=== PATIENT | female | born 1965 | race Caucasian/White ===

== ENCOUNTER 2019-11-23 07:50 | Outpatient (CLI) | payer BC, SELFPAY ==
--- NOTE | ~2019-11-23 | US_ITS ---
EXAMINATION: US abdomen limited DATE: 11/23/2019 08:26 INDICATION: Splenic tumor on prior CT scan TECHNIQUE: Multiple grayscale and Doppler ultrasound images of the abdomen were obtained. COMPARISON: CT, 09/26/2018 FINDINGS: Bowel gas obscures visualization of the pancreas. The visualized portions of the pancreas a re unremarkable. The liver is normal with normal echogenicity and echotexture. No surface nodularity. Normal hepatopetal flow in the main portal vein. The gallbladder is normal with no abnormal wall thi ckening, pericholecystic fluid or stones. The normal common bile duct measures 4 mm. There was no son ographic Manuel sign. The spleen measures 10.0 cm. The tiny splenic lesion described on the compariso n CT is not identified. IMPRESSION: 1. Splenic lesion described on CT is not identified. Given greater than 12 months of interval since t he comparison examination, this lesion is most consistent with a benign finding. Reviewed, dictated and finalized at location A. ICAL SOCIAL WORKER IMPRESSION: 1. Splenic lesion described on CT is not identified. Given greater than 12 purvi hs of interval since the comparison examination, this lesion is most consistent with a benign finding.
== END 2019-11-23 07:51 | disposition home or self-care (01) ==
LOC: CHSIMG 07:53
PROVIDERS: PCP Internal Medicine; Visit Provider Internal Medicine
DX: D73.89 Other diseases of spleen (principal)
CPT/HCPCS: 76705

== ENCOUNTER 2020-03-22 16:31 | Outpatient (CLI) | payer BC, SELFPAY ==
--- NOTE | ~2020-03-22 | XR_ITS ---
XR ankle LT min 3V DATE: 03/22/2020 16:45 INDICATION: Worsening lateral ankle pain and swelling TECHNIQUE: 4 views COMPARISON: None FINDINGS: No fracture or dislocation of the ankle or disruption of the ankle mortise. No periosteal r eaction or bone destruction. IMPRESSION: Negative Reviewed, dictated and finalized at location A. IMPRESSION: Negative
== END 2020-03-22 16:32 | disposition home or self-care (01) ==
LOC: CHSIMG 16:32
PROVIDERS: PCP Internal Medicine; Visit Provider Internal Medicine
DX: M25.472 Effusion, left ankle (principal); M25.572 Pain in left ankle and joints of left foot
CPT/HCPCS: 73610

== ENCOUNTER 2020-08-30 15:09 | Outpatient (CLI) | payer BC, SELFPAY ==
[2020-08-30 16:38] LABS: SARS-CoV-2 Ag Negative (Negative)
[2020-08-30 16:39] LABS: Influenza Control Valid (Valid)
== END 2020-08-30 15:10 | disposition home or self-care (01) ==
LOC: CHSLAB 15:13
PROVIDERS: PCP Internal Medicine; Visit Provider Internal Medicine
DX: R09.81 Nasal congestion (principal); Z20.828 Contact with and (suspected) exposure to other viral communicable diseases
CPT/HCPCS: 87426; 87804

== ENCOUNTER 2020-09-07 10:12 | Outpatient (CLI) | payer BC, SELFPAY ==
--- NOTE | ~2020-09-07 | XR_ITS ---
EXAMINATION: XR chest 2V DATE: 09/07/2020 10:57 INDICATION: Shortness of breath, COVID 19 TECHNIQUE: PA and lateral views of the chest are obtained. COMPARISON: 06/27/2015 FINDINGS: The lungs are free of acute opacities. There is no pleural effusion or pneumothorax. The ca rdiomediastinal silhouette is normal. There is moderate thoracic spondylosis. IMPRESSION: 1. No acute cardiopulmonary abnormality. Reviewed, dictated and finalized at location A. ARIAL SCIENCE PROFESSOR
== END 2020-09-07 10:13 | disposition home or self-care (01) ==
LOC: CHSIMG 10:13
PROVIDERS: PCP Internal Medicine; Visit Provider Internal Medicine
DX: R06.02 Shortness of breath (principal)
CPT/HCPCS: 71046

== ENCOUNTER 2021-05-14 14:01 | Outpatient (RCR) | payer BC, SELFPAY ==
--- NOTE | 2021-05-14 15:15 | PTOPEVAL ---
Thank you for referring Barbara Perez to [facility].? The patient is scheduled to be seen for therapy? _2___x/week for 8 visits . Please review, sign, date and return this plan of care TIM. I agree with and certify that the following plan of care is medically necessary. Referring Physician Date Admitting Provider: Attending Provider: JACK RUVALCABA Referring Provider: *PT Outpatient Evaluation Start: 05/14/21 14:05 Freq: Status: Active Protocol: Document 05/14/21 14:05 NAMRATA (Rec: 05/14/21 15:15 NAMRATA [email or web address]) Therapy Assessment Status Assessment Status Assessment Status Evaluation Evaluation Information Problem Diagnosis low back pain Onset 05/28/20 Subjective Information Pt. reports that she began Query Text:As Reported By Patient/ noticing pain about a year ago Family . She describes most of her pain from the low back and radiates into the front of the thigh. She reports that sitting for long periods will increase her pain and states that getting up after sitting is difficult. She reports that she has a long car ride to get to work which is painful. she reports pain can radiate down to the calf as well. She states that pain radiates into the pelvis and feels like a cantaulope under her pelvic bone. She reports that she does have RA and was dx 2 years ago, but did not test positive with blood testing. She does have bowel control issues, but states that she does have IBS. She also does suffer from diverticuliits. Pt. reports that her back and hip pain is constant. She states that she works at [employer] and is up most of the day. She reports that sleep was difficult, but has now started a mm. relaxor, gabapentin, tylenol pm nightly to aid with sleep. Pt . reports that she avoids all recreational activities due to
--- NOTE | 2021-06-10 17:13 | PTOPEVAL ---
Thank you for referring Barbara Perez to [facility].? The patient is scheduled to be seen for therapy? ____x/week for ___ weeks. Please review, sign, date and return this plan of care TIM. I agree with and certify that the following plan of care is medically necessary. Referring Physician Date Admitting Provider: Attending Provider: JACK RUVALCABA Referring Provider: STEFANIA Outpatient Evaluation Start: 05/14/21 14:05 Freq: Status: Active Protocol: Document 06/10/21 16:00 [facility] (Rec: 06/10/21 17:12 [facility] [id number]) Therapy Assessment Status Assessment Status Assessment Status Discharge Evaluation Information Problem Diagnosis low back pain Onset 05/28/20 Additional Evaluation Detail oswestry = 46% functionally declined Subjective Information patient reports she feels Query Text:As Reported By Patient/ better this date. she reports Family she feels much better overall since her initial evaluation. she reports she was a bit flared up yesterday when she fell at work. she reports she had an MRI of the cervical, thoracic, and lumbar spines recently. results show spondylosis and annular fissure protruding into the R side at L4/5. patient reports she is ready to DC therapy to continue with HEP on her own until follow up with MD. Pain Assessment Timing of Pain Assessment Timing of Pain Assessment Assessment Pain Scale Pain Scale Used Numeric (1 - 10) Self Report Pain Assessment Lower Back Reported Pain Level 2 Greatest Pain Intensity 4 Pain Score Pain Score 2: Self Report Interventions Used Interventions Used By Clinicians Activity or ADL's,Electrical Stimulation,Exercise,Heat Cervical and Lumbar ROM Lumbar ROM Lumbar Flexion Active Ankle,Floor Query Text:Hands to: Lumbar Extension (0-40) 30 Query Text:Active in Degrees Lumbar Lateral Flexion Right (0-40) 40 Query Text:Active in Degrees Lumbar Lateral Flexion Left (0-40) 40 Query Text:Active in Degrees Cervical and Lumbar Muscle Testing Lumbar Strength Upper Abdominal Strength 3+Fair+ Lower Abdominal Strength 3+Fair+ Abdominal Obliques 3+Fair+ Lower Extremity Muscle Strength Testing General Lower Extremity Strength Gross Lower Extremity Strength -bilateral hip fl
== END 2021-06-10 17:22 | disposition home or self-care (01) ==
LOC: CHSPT 14:01
PROVIDERS: PCP Internal Medicine
DX: M54.5 Low back pain (principal)
CPT/HCPCS: 97014; 97110; 97140; 97161; G0283

== ENCOUNTER 2021-05-21 17:55 | Outpatient (CLI) | payer BC, SELFPAY ==
--- NOTE | ~2021-05-21 | XR_ITS ---
XR lumbar spine 2-3V DATE: 05/21/2021 18:15 INDICATION: Chronic low back pain, right leg numbness TECHNIQUE: AP, lateral, coned lateral lumbosacral views COMPARISON: None FINDINGS: There is minimal dextroscoliosis of the lumbar spine. There is osteopenia. There is severe degenerative disc disease at L2-3. There is moderate degenerative disc disease at L4- 5 and L5-S1. The lumbar pedicles are intact. No fracture or bone destruction. The sacroiliac joints are intact. Prominent calcification of the iliac arteries, abdominal aortic calcification. IMPRESSION: Prominent degenerative disc disease at L2-3, moderate degenerative disc disease at L4-5 a nd L5-S1 Diffuse osteopenia Minimal dextroscoliosis Reviewed, dictated and finalized at location A. IMPRESSION: Prominent degenerative disc disease at L2-3, moderate degenerative disc disease at L4-5 and L5-S1 Diffuse osteopenia Minimal dextroscoliosis
== END 2021-05-21 17:56 | disposition home or self-care (01) ==
LOC: CHSIMG 17:57
PROVIDERS: PCP Internal Medicine; Visit Provider Internal Medicine
DX: M54.5 Low back pain (principal); M06.09 Rheumatoid arthritis without rheumatoid factor, multiple sites
CPT/HCPCS: 72100

== ENCOUNTER 2021-05-27 11:05 | Outpatient (CLI) | payer BC, SELFPAY ==
--- NOTE | ~2021-05-27 | DEXA_ITS ---
Bone Density Report Name: Barbara Perez Age: 56 Sex: Female Ethnicity: White Date of : 1965 Indication: postmenopausal; screening for osteoporosis; height loss; inflammatory bowel disease; cancer; rheumatoid arthritis; secondary osteoporosis; Referring Provider: Bianca, Manish Israel Study: Bone densitometry was performed. Exam Date: May 27, 2021 Accession number: [id number] Bone Density: Region BMD T-score Z-score Classification AP Spine(L1, L2, L3) 1.052 0.3 1.3 Normal Femoral Neck (Left) 0.854 0.0 1.1 Normal Total Hip (Left) 0.993 0.4 1.1 Normal Femoral Neck (Right) 0.898 0.4 1.5 Normal Total Hip (Right) 1.011 0.6 1.2 Normal Femoral Neck Mean 0.876 0.2 1.3 Normal Total Hip Mean 1.002 0.5 1.2 Normal World Health Organization criteria for BMD impression classify patients as: Normal (T-score at or above -1.0), Osteopenia (T-score between -1.0 and -2.5), or Osteoporosis (T-score at or below -2.5). 10-year Fracture Risk: FRAX not reported because: All T-scores for Spine Total, Hip Total, Femoral Neck at or above -1.0 Clinical Information Provided by Patient: Smokes Has rheumatoid arthritis Has secondary osteoporosis Has used the following medications: Vitamin D Has the following medical conditions: Cancer, Inflammatory bowel diseases Patient maximum height was 67 Menopause Age: 42 Drinks caffeinated beverages Onset of menses at age 14 Number of children 0 Impression: The patient has normal bone mass. The patient has risk factors, including: smoking. Discussion: BONE DENSITY IS ABOVE THE MINIMUM DESIRABLE LEVEL AT ALL SKELETAL SITES TESTED. This patient?s bone mineral density is above the minimum desirable level (T-score -1.0 or better) at all sites measured. The patient should follow a healthful lifestyle (good nutrition with adequate calcium and vitamin D, and appropriate weight-bearing exercise). Follow-Up: Consider repeating this study in 5 years or sooner if there is some new clinical indication. Reported by: Dr. Emmett Hui on 05/27/2021 11:39:00 AM. Reviewed, dictated and finalized at location [facility]
== END 2021-05-27 11:06 | disposition home or self-care (01) ==
LOC: CHSIMG 11:12
PROVIDERS: PCP Internal Medicine; Visit Provider Internal Medicine
DX: M06.09 Rheumatoid arthritis without rheumatoid factor, multiple sites (principal)
CPT/HCPCS: 77080

== ENCOUNTER 2021-06-07 06:44 | Outpatient (CLI) | payer BC, SELFPAY ==
--- NOTE | ~2021-06-07 | MR_ITS ---
EXAMINATION: MR cervical spine wo [facility] EXAM DATE: 06/07/2021 08:50 INDICATION: Cervical spondylosis, hand numbness bilaterally. Neck pain. TECHNIQUE: Multi-sequential, multiplanar MR images of the cervical spine were obtained without contra st. Axial T2, axial T2 MERGE sequence. Sagittal T1, T2, T2 fat saturation images also obtained. Th ere is no prior study for comparison. FINDINGS: There is moderate disc disease C5-6 and 6-7. The vertebral body and disc heights are other case well maintained. The vertebral bodies are aligned in the AP dimension. The spinal cord signal in tensity and intrinsic morphology is normal. Cervicomedullary junction is normal in appearance. There are no suspicious marrow signal abnormalities. Paraspinal soft tissue is unremarkable. Level by level evaluation: C2-C3: Disc does not extend beyond the endplate margin. Uncovertebral joint arthropathy: Mild right. Facet joint arthropathy: Moderate right, mild left. Neural foraminal stenosis: No stenosis. Central canal stenosis: No stenosis. C3-C4: Disc does not extend beyond the endplate margin. Uncovertebral joint arthropathy: Mild bilateral. Facet joint arthropathy: Moderate bilateral. Neural foraminal stenosis: Mild right. Central canal stenosis: No stenosis. C4-C5: There is a mild diffuse disc bulge. Uncovertebral joint arthropathy: Mild to moderate bilateral. Facet joint arthropathy: Moderate left, mild to moderate right. Neural foraminal stenosis: Mild bilateral. Central canal stenosis: No stenosis. C5-C6: There is a mild diffuse disc bulge. Uncovertebral joint arthropathy: Severe left, moderate right. Facet joint arthropathy: Moderate bilateral. Neural foraminal stenosis: Moderate to severe left, mild to moderate right. Central canal stenosis: Mild. C6-C7: There is a mild diffuse disc bulge. Uncovertebral joint arthropathy: Moderate to severe bilateral. Facet joint arthropathy: Mild to moderate left, mild right. Neural foraminal stenosis: Moderate bilateral, left greater than right. Central canal stenosis: Mild. C7-T1: Disc does not extend beyond the endplate margin. Uncovertebral joint arthropathy: Mild to moderate bilateral. Facet joint arthropathy: Moderate left, mild right. Neural foraminal stenosis: Mild left. Central canal stenosis: No stenosis. IMPRESSION: 1. Cervical spondylosis mostly C5-6 and C6-7. Reviewed, dictated and finalized at location A.
--- NOTE | ~2021-06-07 | MR_ITS ---
EXAMINATION: MR thoracic spine wo con EXAM DATE: 06/07/2021 08:50 INDICATION: Thoracic And Lumbar Radiculopathy . TECHNIQUE: Multi-sequential, multiplanar MR images of the thoracic spine were obtained without contra st. Sagittal T1, T2, T2 fat saturation, axial T2 weighted images reviewed. There is no prior study for comparison. FINDINGS: Mild diffuse thoracic disc disease and facet arthropathy with small disc bulges and protrus ions at some of the levels, only causing minimal central canal stenosis. The neural foramen appear wi luci patent. The spinal cord signal intensity and intrinsic morphology is normal. There are no suspic ious marrow signal abnormalities. The vertebral bodies are aligned in the AP dimension. Paraspinal so ft tissue is unremarkable. IMPRESSION: Mild thoracic spondylosis. Reviewed, dictated and finalized at location A. IMPRESSION: Mild thoracic spondylosis.
--- NOTE | ~2021-06-07 | MR_ITS ---
EXAMINATION: MR lumbar spine wo con EXAM DATE: 06/07/2021 08:50 INDICATION: Thoracic and lumbar radiculopathy. Low back pain for one year, right leg numbness. TECHNIQUE: Multi-sequential, multiplanar MR images of the lumbar spine were obtained without contrast . Sagittal T1, T2, T2 fat saturation images. Axial T2 weighted images. Correlation is made to lumba r x-ray 05/21/2021. FINDINGS: L2-3 has moderate disc disease with endplate edema. Mild disc disease L4-5 and L5-S1. There is 2 mm anterolisthesis L4 on L5. No spondylolysis. The conus medullaris terminates at the L1/2 leve l and has normal signal intensity and morphology. There are no focal marrow signal abnormalities susp icious for malignancy or acute fracture. Paraspinal soft tissue is unremarkable. Level by level evaluation: T12-L1: Disc does not extend beyond the endplate margin. Facet arthropathy: None. Neural foraminal stenosis: No stenosis. Central canal stenosis: No stenosis. L1-L2: Disc does not extend beyond the endplate margin. Facet arthropathy: Mild. Neural foraminal stenosis: No stenosis. Central canal stenosis: No stenosis. L2-L3: There is a moderate diffuse disc bulge. Facet arthropathy: Mild to moderate. Neural foraminal stenosis: Mild bilateral. Central canal stenosis: Mild. L3-L4: There is a mild diffuse disc bulge. Facet arthropathy: Mild to moderate. Neural foraminal stenosis: No stenosis. Central canal stenosis: No stenosis. L4-L5: There is a mild to moderate diffuse disc bulge, small far right annular fissure and protrusion , cephalad migration narrowing the neural foramina. Facet arthropathy: Moderate. Neural foraminal stenosis: Moderate right, mild to moderate left. Central canal stenosis: Mild to moderate. L5-S1: There is a moderate diffuse disc bulge. Facet arthropathy: Moderate to severe right, moderate left. Neural foraminal stenosis: Mild to moderate right, mild left. Central canal stenosis: Mild. IMPRESSION: 1. L4-5 right central annular fissure, protrusion contributing to moderate right neural foraminal st enosis. 2. Moderate disc disease L2-3. 3. Less spondylosis other levels. Reviewed, dictated and finalized at location A. IMPRESSION: 1. L4-5 right central annular fissure, protrusion contributing to moderate rig ht neural foraminal stenosis. 2. Moderate disc disease L2-3. 3. Less spondylosis other levels.
== END 2021-06-07 06:45 | disposition home or self-care (01) ==
LOC: CHSIMG 06:46
PROVIDERS: PCP Internal Medicine
DX: R20.0 Anesthesia of skin (principal); M54.14 Radiculopathy, thoracic region; M54.16 Radiculopathy, lumbar region
CPT/HCPCS: 72141; 72146; 72148

== ENCOUNTER 2021-11-29 07:05 | Outpatient (CLI) | payer BC, SELFPAY ==
--- NOTE | ~2021-11-29 | CT_ITS ---
EXAMINATION: CT abdomen pelvis w con DATE: 11/29/2021 07:42 INDICATION: Abdominal pain TECHNIQUE: Computed tomography (CT) of the abdomen and pelvis was performed with 100 cc Omnipaque 350 intravenous contrast. The dose-length product was 808.96 mGy-cm. Automated exposure control and iter ative reconstruction technique were employed. COMPARISON: CT dated 09/26/2018. FINDINGS: Stable 5 mm nodule right lower lobe abutting the pleural surface. Stable mild chronic inter stitial infiltrates in the right middle and lower lobe. Heart size normal. No significant pleural or pericardial effusion. The liver, spleen, pancreas, adrenal glands are unremarkable. There are nonobst ructing bilateral renal stones. Gallbladder is present. Nonobstructive bowel gas pattern. No abnormal pelvic masses or fluid collections. Prominent parametrial vessels are noted, nonspecific. No lymphad enopathy. No significant vascular abnormality. IMPRESSION: 1. No acute abdominal abnormality. 2: Nonobstructing bilateral nephrolithiasis. Reviewed, dictated and finalized at location A. UTIVE OFFICER
== END 2021-11-29 07:06 | disposition home or self-care (01) ==
LOC: CHSIMG 07:06
PROVIDERS: PCP Internal Medicine; Visit Provider Internal Medicine
DX: R10.9 Unspecified abdominal pain (principal)
CPT/HCPCS: 74177; Q9967

== ENCOUNTER 2021-12-05 10:23 | Outpatient (CLI) | payer BC, SELFPAY ==
--- NOTE | ~2021-12-05 | XR_ITS ---
EXAMINATION: XR hip RT min 2V DATE: 12/05/2021 10:50 INDICATION: Right hip pain. TECHNIQUE: 2 views of right hip were obtained. COMPARISON: CT abdomen and pelvis 11/29/2021 FINDINGS: Bone alignment is normal. No fracture. There is mild right hip osteoarthritis. Tubal ligati on clips are noted. IMPRESSION: 1. Mild right hip osteoarthritis. Reviewed, dictated and finalized at location A. ER SOFTWARE ENGINEER
== END 2021-12-05 10:24 | disposition home or self-care (01) ==
LOC: CHSIMG 10:24
PROVIDERS: PCP Internal Medicine; Visit Provider Internal Medicine
DX: M25.551 Pain in right hip (principal)
CPT/HCPCS: 73502

== ENCOUNTER 2022-06-13 09:42 | Outpatient (CLI) | payer BC, SELFPAY ==
[2022-06-13 09:55] LABS: Basophils Absolute Auto 0.05 K/mm3 (0.00-0.10); Basophils Percent Auto 0.5 % (0.0-1.0); Eosinophils Absolute Auto 0.26 K/mm3 (0.02-0.50); Eosinophils Percent Auto 2.6 % (1.0-6.0); Hematocrit 44.2 % (35.0-49.0); Hemoglobin 14.4 g/dL (12.0-15.0); Immature Granulocyte Absolute 0.03 K/mm3 (0.00-0.00); Immature Granulocyte Percent A 0.3 % (0.0-0.0); Lymphocytes Absolute Auto 3.33 K/mm3 (1.10-4.50); Lymphocytes Percent Auto 32.8 % (18.0-42.0); Mean Corpuscular HGB Conc 32.6 g/dL (32.0-36.0); Mean Corpuscular Hemoglobin 30.1 pg (27.0-31.0); Mean Corpuscular Volume 92.3 fL (78.0-102.0); Mean Platelet Volume 9.4 fl (9.2-11.8); Monocytes Percent Auto 5.9 % (2.0-11.0); Neutrophils Absolute Auto 5.9 K/mm3 (1.7-7.2); Neutrophils Percent Auto 57.9 % (50.0-70.0); Platelet Count Result 278 K/mm3 (150-420); Red Blood Count 4.79 M/mm3 (4.20-5.40); Red Cell Distribution Width 12.9 % (11.6-14.4); White Blood Count 10.1 K/mm3 (4.8-10.8)
[2022-06-13 10:57] LABS: Erythrocyte Sedimentation Rate 16 mm/hr (0-20)
[2022-06-13 11:03] LABS: Hemoglobin A1C 6.2 % (<5.7)
[2022-06-13 11:12] LABS: Alanine Aminotransferase 23 U/L (14-59); Albumin Level 4.2 g/dL (3.4-5.0); Alkaline Phosphatase 72 U/L (46-116); Anion Gap 9 mmol/L (8-16); Aspartate Amino Transferase 21 U/L (15-37); Bilirubin,Total 0.4 mg/dL (0.00-1.00); Blood Urea Nitrogen 12 mg/dL (7-18); CRP 0.6 mg/dL (0.0-0.9); Calcium 9.4 mg/dL (8.5-10.1); Carbon Dioxide 28 mmol/L (21-32); Chloride 103 mmol/L (98-108); Cholesterol 237 mg/dL (0-200); Creatine Kinase 86 U/L (26-192); Estimated Glomerular Filt Rate > 60; Glucose 106 mg/dL (70-99); HDL Direct 61 mg/dL (40-60); LDL Cholesterol Calculated 94 mg/dL (<130); Osmolality Calculated 289 mOsm/kg (285-295); Potassium 4.2 mmol/L (3.5-5.1); Sodium 140 mmol/L (136-145); Total Protein 7.1 g/dL (6.4-8.2); Triglycerides 408 mg/dL (0-150)
[2022-06-13 11:13] LABS: LDL Cholesterol Direct 107 mg/dL (0-130)
[2022-06-17 12:55] LABS: Anti Cyclic Citrullinated Pept <16 Units (<20)
[2022-06-17 17:17] LABS: Vitamin D 25 Hydroxy 46 ng/mL (30-100)
== END 2022-06-13 09:43 | disposition home or self-care (01) ==
LOC: CHSLAB 09:44
PROVIDERS: PCP Internal Medicine; Visit Provider Internal Medicine
DX: E78.2 Mixed hyperlipidemia (principal); R73.01 Impaired fasting glucose; E55.9 Vitamin D deficiency, unspecified; M06.09 Rheumatoid arthritis without rheumatoid factor, multiple sites
CPT/HCPCS: 36415; 80053; 80061; 82306; 82550; 83036; 83721; 85025; 85652; 86140; 86200

== ENCOUNTER 2023-01-14 08:25 | Outpatient (CLI) | payer BC, SELFPAY | END 2023-01-14 08:26 | disposition home or self-care (01) | LOC: CHSIMG 09:06 | PROVIDERS: PCP Internal Medicine; Visit Provider Urology | DX: R31.29 Other microscopic hematuria (principal) | CPT/HCPCS: 99199 ==

== ENCOUNTER 2023-01-23 07:28 | Outpatient (CLI) | payer BC, SELFPAY ==
--- NOTE | ~2023-01-23 | MR_ITS ---
MRI of the right hip Clinical history: Pain Technique: Coronal T1-weighted, T2-weighted, and proton-density fat-sat images, and axial T1-weighted and proton-density fat-sat images were acquired through the pelvis. Coronal T2-weighted images and c oronal, axial, and sagittal proton-density fat-sat images were acquired through the right hip. Findings: There is no fracture, avascular necrosis, or transient osteoporosis of either hip. Bone mar row signals in the proximal femora and visualized pelvic bones are unremarkable. Probable mild chondr omalacia of both hip joints noted. No joint effusion evident. Visualized musculature about the pelvis and right hip is unremarkable. No muscle atrophy or edema. As tendons are intact. No soft tissue mass or fluid collection seen. No evidence for bursitis. IMPRESSION: Mild chondromalacia of both hip joints. No other significant findings. Reviewed, dictated and finalized at [facility].
== END 2023-01-23 07:29 | disposition home or self-care (01) ==
LOC: CHSIMG 07:30
PROVIDERS: PCP Internal Medicine; Visit Provider Internal Medicine
DX: M25.551 Pain in right hip (principal); M94.251 Chondromalacia, right hip
CPT/HCPCS: 73721

== ENCOUNTER 2023-01-27 08:05 | Outpatient (CLI) | payer BC, SELFPAY ==
--- NOTE | ~2023-01-27 | CT_ITS ---
EXAMINATION: CT abdomen pelvis wo/w con DATE: 01/27/2023 09:13 INDICATION: Microscopic hematuria. Right lower quadrant abdominal pain. TECHNIQUE: Computed tomography (CT) of the abdomen and pelvis was performed without and with intraven ous contrast using a total of 130 mL Omnipaque-350 intravenous contrast with a double-bolus technique for simultaneous opacification of the renal parenchyma and renal collecting system. Automated exposu re control and iterative reconstruction technique were employed. The dose-length product was 1207.90 mGy-cm. COMPARISON: CT abdomen and pelvis 11/29/2021 FINDINGS: The visualized portions of the lung bases demonstrate mild emphysema. There is mild radiation fibrosi s in anterolateral right lung. No pleural effusion. The heart size is normal. There are coronary ree ry calcifications. No pericardial effusion. The liver, gallbladder, spleen, pancreas, adrenal glands, and kidneys are normal. There are vascular calcifications at the lupe of the kidneys. There is no ur olithiasis. The ureters are well opacified and are normal. The bladder is normal. There are bilateral tubal ligation clips. There are no dilated loops of bowel. The appendix is normal. There are no path ologically enlarged lymph nodes. There is no free intraperitoneal fluid. There is severe lumbar spond ylosis. IMPRESSION: 1. No etiology for hematuria. Reviewed, dictated and finalized at location A.
[2023-01-27 08:37] LABS: Estimated Glomerular Filt Rate > 60
== END 2023-01-27 08:06 | disposition home or self-care (01) ==
LOC: CHSIMG 08:11
PROVIDERS: PCP Internal Medicine
DX: R31.29 Other microscopic hematuria (principal)
CPT/HCPCS: 74178; Q9967

== ENCOUNTER 2023-07-06 18:11 | Outpatient (CLI) | payer BC, SELFPAY ==
[2023-07-06 18:33] LABS: Appearance Urine Clear (Clear); Basophils Absolute Auto 0.08 K/mm3 (0.00-0.10); Basophils Percent Auto 0.8 % (0.0-1.0); Bilirubin Urine Negative (Negative); Blood Urine 2+ (Negative); Color Urine Yellow (Yellow); Eosinophils Absolute Auto 0.16 K/mm3 (0.02-0.50); Eosinophils Percent Auto 1.6 % (1.0-6.0); Glucose Urine UA Negative (Negative); Hematocrit 40.4 % (35.0-49.0); Hemoglobin 13.3 g/dL (12.0-15.0); Immature Granulocyte Absolute 0.02 K/mm3 (0.00-0.00); Immature Granulocyte Percent A 0.2 % (0.0-0.0); Ketones Urine Negative (Negative); Leukocyte Esterase Ur Trace (Negative); Lymphocytes Absolute Auto 4.31 K/mm3 (1.10-4.50); Lymphocytes Percent Auto 43.2 % (18.0-42.0); Mean Corpuscular HGB Conc 32.9 g/dL (32.0-36.0); Mean Platelet Volume 9.5 fl (9.2-11.8); Monocytes Absolute Auto 0.52 K/mm3 (0.10-0.90); Monocytes Percent Auto 5.2 % (2.0-11.0); Neutrophils Absolute Auto 4.9 K/mm3 (1.7-7.2); Nitrate Urine Negative (Negative); Platelet Count Result 312 K/mm3 (150-420); Protein Urine Negative (Negative); Red Blood Count 4.44 M/mm3 (4.20-5.40); Red Cell Distribution Width 12.7 % (11.6-14.4); Urobilinogen Urine 0.2 mg/dL (0.2-1.0)
[2023-07-06 18:44] LABS: Hemoglobin A1C 6.1 % (<5.7)
[2023-07-06 18:58] LABS: Add Urine Microscopic? YES; Bacteria Urine Trace /hpf; Mucus Urine Few /lpf; RBC Urine 0-2 /hpf (0-2); Squamous Epithelial Cell Urine Rare /hpf (Few); WBC Urine 0-3 /hpf (0-3)
[2023-07-06 19:11] LABS: Alanine Aminotransferase 27 U/L (14-59); Albumin Level 4.2 g/dL (3.4-5.0); Alkaline Phosphatase 74 U/L (46-116); Anion Gap 9 mmol/L (8-16); Aspartate Amino Transferase 19 U/L (15-37); Bilirubin,Total 0.4 mg/dL (0.00-1.00); Blood Urea Nitrogen 18 mg/dL (7-18); Calcium 9.5 mg/dL (8.5-10.1); Carbon Dioxide 28 mmol/L (21-32); Chloride 100 mmol/L (98-108); Cholesterol 207 mg/dL (0-200); Creatine Kinase 148 U/L (26-192); Estimated Glomerular Filt Rate > 60; Glucose 98 mg/dL (70-99); HDL Direct 78 mg/dL (40-60); LDL Cholesterol Calculated 109 mg/dL (<130); Osmolality Calculated 285 mOsm/kg (285-295); Potassium 4.2 mmol/L (3.5-5.1); Sodium 137 mmol/L (136-145); Triglycerides 98 mg/dL (0-150)
[2023-07-06 19:15] LABS: CRP < 0.5 mg/dL (0.0-0.9)
[2023-07-06 19:35] LABS: Erythrocyte Sedimentation Rate 16 mm/hr (0-20); Rheumatoid Factor Screen Negative (Negative)
[2023-07-09 12:09] LABS: Cyclic Citrullinated Peptide <16 Units (<20)
== END 2023-07-06 18:12 | disposition home or self-care (01) ==
LOC: CHSLAB 18:13
PROVIDERS: PCP Internal Medicine; Visit Provider Internal Medicine
DX: E78.2 Mixed hyperlipidemia (principal); R73.01 Impaired fasting glucose; M06.09 Rheumatoid arthritis without rheumatoid factor, multiple sites; M79.2 Neuralgia and neuritis, unspecified
CPT/HCPCS: 36415; 80053; 80061; 81001; 82550; 83036; 85025; 85652; 86038; 86140; 86200; 86430

== ENCOUNTER 2024-01-01 08:48 | Outpatient (CLI) | payer BC, SELFPAY ==
[2024-01-01 09:38] LABS: Basophils Absolute Auto 0.08 K/mm3 (0.00-0.10); Eosinophils Absolute Auto 0.22 K/mm3 (0.02-0.50); Eosinophils Percent Auto 2.7 % (1.0-6.0); Hematocrit 43.9 % (35.0-49.0); Hemoglobin 13.6 g/dL (12.0-15.0); Immature Granulocyte Absolute 0.02 K/mm3 (0.00-0.00); Immature Granulocyte Percent A 0.2 % (0.0-0.0); Lymphocytes Absolute Auto 3.63 K/mm3 (1.10-4.50); Lymphocytes Percent Auto 43.8 % (18.0-42.0); Mean Corpuscular Hemoglobin 28.5 pg (27.0-31.0); Mean Corpuscular Volume 91.8 fL (78.0-102.0); Mean Platelet Volume 9.6 fl (9.2-11.8); Monocytes Absolute Auto 0.51 K/mm3 (0.10-0.90); Monocytes Percent Auto 6.2 % (2.0-11.0); Neutrophils Absolute Auto 3.82 K/mm3 (1.70-7.20); Neutrophils Percent Auto 46.1 % (50.0-70.0); Platelet Count Result 300 K/mm3 (150-420); Red Blood Count 4.78 M/mm3 (4.20-5.40); Red Cell Distribution Width 12.1 % (11.6-14.4); White Blood Count 8.3 K/mm3 (4.8-10.8)
[2024-01-01 09:51] LABS: Alanine Aminotransferase 23 U/L (14-59); Albumin Level 4.1 g/dL (3.4-5.0); Alkaline Phosphatase 63 U/L (46-116); Anion Gap 7 mmol/L (4-12); Aspartate Amino Transferase 17 U/L (15-37); Bilirubin,Total 0.3 mg/dL (0.00-1.00); Blood Urea Nitrogen 13 mg/dL (7-18); Calcium 9.4 mg/dL (8.5-10.1); Carbon Dioxide 32 mmol/L (21-32); Chloride 103 mmol/L (98-108); Cholesterol 217 mg/dL (0-200); Creatine Kinase 65 U/L (26-192); Estimated Glomerular Filt Rate > 60; Glucose 95 mg/dL (70-99); HDL Direct 71 mg/dL (40-60); LDL Cholesterol Calculated 89 mg/dL (<130); Osmolality Calculated 294 mOsm/kg (285-295); Potassium 4.3 mmol/L (3.5-5.1); Sodium 142 mmol/L (136-145); Total Protein 6.9 g/dL (6.4-8.2); Triglycerides 287 mg/dL (0-150)
[2024-01-01 09:57] LABS: Appearance Urine Cloudy (Clear); Bilirubin Urine Negative (Negative); Blood Urine Trace-intact (Negative); Color Urine Light Yellow (Yellow); Glucose Urine UA Negative (Negative); Ketones Urine Negative (Negative); Leukocyte Esterase Ur 2+ LEU/UL (Negative); Nitrate Urine Negative (Negative); Protein Urine Negative (Negative); Specific Grav Ur 1.015 (1.010-1.020); Urobilinogen Urine 0.2 mg/dL (0.2-1.0)
[2024-01-01 10:03] LABS: CRP < 0.5 mg/dL (0.0-0.9)
[2024-01-01 10:09] LABS: Rheumatoid Factor Screen Negative (Negative)
[2024-01-01 10:10] LABS: Hemoglobin A1C 5.9 % (<5.7)
[2024-01-01 10:15] LABS: Add Urine Microscopic? YES; RBC Urine 0-2 /hpf (0-2); Squamous Epithelial Cell Urine Few /hpf (Few)
[2024-01-01 10:16] LABS: Amorphous Sediment Urine Moderate; Bacteria Urine 1+ /hpf
[2024-01-01 10:34] LABS: Erythrocyte Sedimentation Rate 10 mm/hr (0-20)
[2024-01-05 19:45] LABS: Anti Cyclic Citrullinated Pept <16 Units (<20)
== END 2024-01-01 08:49 | disposition home or self-care (01) ==
LOC: CHSLAB 08:50
PROVIDERS: PCP Internal Medicine; Visit Provider Internal Medicine
DX: R73.01 Impaired fasting glucose (principal); E78.2 Mixed hyperlipidemia; M79.7 Fibromyalgia; N39.0 Urinary tract infection, site not specified; R82.90 Unspecified abnormal findings in urine
CPT/HCPCS: 36415; 80053; 80061; 81001; 82043; 82550; 83036; 85025; 85652; 86038; 86140; 86200; 86430; 87086; 87088

== ENCOUNTER 2024-07-31 09:52 | Outpatient (CLI) | payer BC, SELFPAY ==
--- NOTE | ~2024-07-31 | CT_ITS ---
CT Scan of the Chest without Contrast: Clinical Indication: Lung cancer screening, nicotine dependence Technique: Contiguous sections were acquired throughout the chest without intravenous contrast. Dose reduction technique was used on this scan by utilizing automated exposure control and iterative recon struction technique. The dose-length product (DLP) was 90.40 mGy-cm. Findings: There is no evidence of any significant mediastinal, hilar or axillary lymphadenopathy. The mediastin al soft tissues appear normal. There is no evidence of pleural or pericardial effusion. The lungs are clear. No pulmonary nodules or infiltrates are noted. Images through the upper abdomen reveal no abnormalities. Impression: Lung RADS 1: Negative. 12 month follow-up screening CT advised. Reviewed, dictated and finalized at location . 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 12 month follow-up screening CT advised.
== END 2024-07-31 09:53 | disposition home or self-care (01) ==
LOC: CHSIMG 09:53
PROVIDERS: PCP Internal Medicine; Visit Provider Internal Medicine
DX: Z12.2 Encounter for screening for malignant neoplasm of respiratory organs (principal); Z87.891 Personal history of nicotine dependence
CPT/HCPCS: 71271

== ENCOUNTER 2025-08-27 15:14 | Outpatient (CLI) | payer BC, SELFPAY ==
--- OUTSIDE RECORDS SUMMARY | 2010-08-24 18:00 | XMS_ITS | Continuity of Care Document ---
Author Organization [facility] Address [address] [place] [address] Phone Care Team Providers Care Electrical Foreman Name Role Phone Conversion MD, Doctor Unavailable Unavailabl e Advance Directives Directive Yes / No Effective Date File Name No Information Encounters Encounter Description Practice Location Reason(s) For Visit Diagnoses Date Provider Providers Copied on Encounter [facility], [address], [place], [place], [id number] , tel:[phone] Conversion Department No Information 0 Conversion Doctor. [address] [place] [address], [id number], . [facility], [address], [place], [place], [address] , tel:[phone] [facility]REQUENCYHEMATURI A NOSBACKACHE NOS 0 Kitty Low. [address] , [address], [place], [id number], [place]. tel:[phone] Family History Family Member Type Diagnosis Age At Onset No Information Payers Payer name Insurance type Covered libertarian ID Authoriza tion(s) No Information Social History Type Description Quantity Date Captured Comments Alcohol Use Details Unknown Caffeine Use Details Unknown Tobacco Use Status Smoking Status No Information Sex Female Chief Complaint And Reason For Visit No Information Reason For Referral Reason For Referral No Information History Of Present Illness Encounter Date Complaint History Of Prese nt Illness No Information Functional Status Date Functional Assessmen t No Information Instructions Date Instruction Additional Infor mation No Information Assessments Type Assessment Date No Information Patient Care Teams Name Effective Dates (start - stop) Status Members No Information
--- NOTE | ~2025-08-27 | XR_ITS ---
XR lumbar spine 2-3V Indication: PAIN; LOWER BACK Comparison: None Findings: Grade 1 anterolisthesis of L4 on L5, no fracture is identified. Moderate loss of disc height L3, L4-5 and L5-S1 Soft tissues unremarkable Impression: No acute abnormality. Reviewed, dictated and finalized at location P. ITOMETRIST Impression: No acute abnormality.
--- NOTE | ~2025-08-27 | XR_ITS ---
EXAMINATION: XR hip LT min 2V, 08/27/2025 15:30 ACCOUNTS EXECUTIVE HISTORY: PAIN; LEFT HIP COMPARISON: No comparisons available. Findings: No acute fracture or malalignment. No significant degenerative changes. Soft tissues unremarkable. Impression: No acute fracture or malalignment. Reviewed, dictated and finalized at location P. UNTS EXECUTIVE Impression: No acute fracture or malalignment.
--- OUTSIDE RECORDS SUMMARY | 2025-08-27 15:51 | XMS_ITS | Encounter Summary ---
Author Organization [facility] Address 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, [place] [address] Admit Date: 01/26/2008 EARL ALVAREZ Sex: F Admit Prov: SREEKANTH FERNANDEZ Date: 1965 Primary Care Prov: SREEKANTH FERNANDEZ CMRN: [id number] Room: [facility] SSN: [id number] IMAGING SERVICES Ordering Prov: SREEKANTH FERNANDEZ Accession Number: [id number] Interpretation BILATERAL DIAGNOSTIC DIGITAL MAMMOGRAMS WITH COMPUTER ASSISTED DIAGNOSIS, RIGHT BREAST ULTRASOUND, 01/26/2008 Clinical History: Ms. Alvarez is a 42-year-old female who presents with a palpable lump in the right breast upper-outer quadrant which she describes as present for approximately 2 years, and getting bigger. She has previously undergone mammography and ultrasound in [place] in 2005. Findings: Three-view bilateral mammography was performed after a radiopaque marker was placed over the palpable lump in the right upper-outer quadrant. The breast parenchyma is heterogeneously dense, which lowers the sensitivity of detection of underlying disease. A partially visualized masslike density is suggested at the site of the marker in the right upper- outer quadrant. There is asymmetry in the lower anterior aspect of the right breast when compared to the left. There is no skin thickening or nipple retraction. No adenopathy is identified. The CAD system was utilized. Ultrasound evaluation of the right upper-outer quadrant, confirms the presence of a 1 cm irregular lobulated mass showing prominent internal vascularity and probable ductal extension. No other discrete masses are identified in the right upper-outer quadrant. No enlarged lymph nodes were visible in the right axilla. Impression: 1. There is a palpable, irregular solid mass in the right breast upper- outer quadrant, suspicious for malignancy. Further evaluation by ultrasound-guided core biopsy is advised. 2. [facility] Radiology will attempt to obtain the patient's previous imaging from [place] for comparison, to determine stability in the parenchymal appearance of both breasts. An addendum report will be issued when the previous films have been obtained and reviewed. BI-RADS Category: 5 Dictated by: DENITA LUBIN Electronically signed by: DENITA LUBIN 01/27/2008 09:12 Transcribed: 01/26/2008 16:18 DKT Procedure Note Denita Lubin - 01/27/2008 [facility] [address] [place], [place] [address] Admit Date: 01/26/2008 EARL ALVAREZ Sex: F Admit Prov: SREEKANTH FERNANDEZ Date: 1965 Primary Care Prov: SREEKANTH FERNANDEZ CMRN: [id number] Room: [facility] SSN: [id number] IMAGING SERVICES Ordering Prov: SREEKANTH FERNANDEZ Interpretation BILATERAL DIAGNOSTIC DIGITAL MAMMOGRAMS WITH COMPUTER ASSISTEDDIAGNOSIS, RIGHT BREAST ULTRASOUND, 01/26/2008 Clinical History: Ms. Alvarez is a 42-year-old female who presents witha palpable lump in the right breast upper-outer quadrant which shedescribes as present for approximately 2 years, and getting bigger. She has previously undergone mammography and ultrasound in [place] [id number]. Findings: Three-view bilateral mammography was performed after aradiopaque marker was placed over the palpable lump in the right upper-outerquadrant. The breast parenchyma is heterogeneously dense, which lowers the sensitivity of detection of underlying disease. A partiallyvisualized masslike density is suggested at the site of the marker in the rightupper- outer quadrant. There is asymmetry in the lower anterior aspect ofthe right breast when compared to the left. There is no skin thickeningor nipple retraction. No adenopathy is identified. The CAD system was utilized. Ultrasound evaluation of the right upper-outer quadrant, confirmsthe presence of a 1 cm irregular lobulated mass showing prominentinternal vascularity and probable ductal extension. No other discrete massesare identified in the right upper-outer quadrant. No enlarged lymph nodeswere visible in the right axilla. Impression: 1. There is a palpable, irregular solid mass in the right breastupper- outer quadrant, suspicious for malignancy. Further evaluation by ultrasound-guided core biopsy is advised. 2. [facility] Radiology will attempt to obtain the patient's previousimaging from [place] for comparison, to determine stability in theparenchymal appearance of both breasts. An addendum report will be issued whenthe previous films have been obtained and reviewed. BI-RADS Category: 5 Dictated by: DENITA LUBIN Electronically signed by: DENITA LUBIN 01/27/2008 09:12 Transcribed: 01/26/2008 16:18 DKT Sreekanth Fernandez MD ORDERABLES Final Result * MAMMO DIGITAL DIAG BILAT (01/26/2008 1:30 PM CDT) Anatomical Region Laterality Modality Breast Bilateral Other 01/26/2008 1:30 PM CDT Narrative 01/27/2008 9:12 AM CDT [facility] [address], [place] [address] Admit Date: 01/26/2008 EARL ALVAREZ Sex: F Admit Prov: SREEKANTH FERNANDEZ Date: 1965 Primary Care Prov: SREEKANTH FERNANDEZ CMRN: [id number] Room: [facility] SSN: [id number] IMAGING SERVICES Ordering Prov: SREEKANTH FERNANDEZ Accession Number: [id number] Interpretation BILATERAL DIAGNOSTIC DIGITAL MAMMOGRAMS WITH COMPUTER ASSISTED DIAGNOSIS, RIGHT BREAST ULTRASOUND, 01/26/2008 Clinical History: Ms. Alvarez is a 42-year-old female who presents with a palpable lump in the right breast upper-outer quadrant which she describes as present for approximately 2 years, and getting bigger. She has previously undergone mammography and ultrasound in [place] in 2005. Findings: Three-view bilateral mammography was performed after a radiopaque marker was placed over the palpable lump in the right upper-outer quadrant. The breast parenchyma is heterogeneously dense, which lowers the sensitivity of detection of underlying disease. A partially visualized masslike density is suggested at the site of the marker in the right upper- outer quadrant. There is asymmetry in the lower anterior aspect of the right breast when compared to the left. There is no skin thickening or nipple retraction. No adenopathy is identified. The CAD system was utilized. Ultrasound evaluation of the right upper-outer quadrant, confirms the presence of a 1 cm irregular lobulated mass showing prominent internal vascularity and probable ductal extension. No other discrete masses are identified in the right upper-outer quadrant. No enlarged lymph nodes were visible in the right axilla. Impression: 1. There is a palpable, irregular solid mass in the right breast upper- outer quadrant, suspicious for malignancy. Further evaluation by ultrasound-guided core biopsy is advised. 2. [facility]iology will attempt to obtain the patient's previous imaging from [place] for comparison, to determine stability in the parenchymal appearance of both breasts. An addendum report will be issued when the previous films have been obtained and reviewed. BI-RADS Category: 5 Assessment BIRADS: 5-Highly suggestive of malignancy, appropriate action should be taken Recommendation: Biopsy should be strongly considered Dictated by: DENITA LUBIN Electronically signed by: DENITA LUBIN 01/27/2008 09:12 Transcribed: 01/26/2008 16:18 DKT Procedure Note Denita Lubin - 01/27/2008 [id number] [place], [place] [address] Admit Date: 01/26/2008 EARL ALVAREZ Sex: F Admit Prov: SREEKANTH FERNANDEZ Date: 1965 Primary Care Prov: SREEKANTH FERNANDEZ CMRN: [id number] Room: [facility] SSN: [id number] IMAGING SERVICES Ordering Prov: SREEKANTH FERNANDEZ Interpretation BILATERAL DIAGNOSTIC DIGITAL MAMMOGRAMS WITH COMPUTER ASSISTEDDIAGNOSIS, RIGHT BREAST ULTRASOUND, 01/26/2008 Clinical History: Ms. Alvarez is a 42-year-old female who presents witha palpable lump in the right breast upper-outer quadrant which shedescribes as present for approximately 2 years, and getting bigger. She has previously undergone mammography and ultrasound in [place] [id number]. Findings: Three-view bilateral mammography was performed after aradiopaque marker was placed over the palpable lump in the right upper-outerquadrant. The breast parenchyma is heterogeneously dense, which lowers the sensitivity of detection of underlying disease. A partiallyvisualized masslike density is suggested at the site of the marker in the rightupper- outer quadrant. There is asymmetry in the lower anterior aspect ofthe right breast when compared to the left. There is no skin thickeningor nipple retraction. No adenopathy is identified. The CAD system was utilized. Ultrasound evaluation of the right upper-outer quadrant, confirmsthe presence of a 1 cm irregular lobulated mass showing prominentinternal vascularity and probable ductal extension. No other discrete massesare identified in the right upper-outer quadrant. No enlarged lymph nodeswere visible in the right axilla. Impression: 1. There is a palpable, irregular solid mass in the right breastupper- outer quadrant, suspicious for malignancy. Further evaluation by ultrasound-guided core biopsy is advised. 2. [facility] Radiology will attempt to obtain the patient's previousimaging from [place] for comparison, to determine stability in theparenchymal appearance of both breasts. An addendum report will be issued whenthe previous films have been obtained and reviewed. BI-RADS Category: 5 Assessment BIRADS: 5-Highly suggestive of malignancy, appropriateaction should be taken Recommendation: Biopsy should be strongly considered Dictated by: DENITA LUBIN Electronically signed by: DENITA LUBIN 01/27/2008 09:12 Transcribed: 01/26/2008 16:18 DKT Sreekanth Fernandez MD MAMMO ORDERABLES Final Result documented in this encounter Visit Diagnoses Diagnosis Lump or mass in breast documented in this encounter Care Teams Foil Stamp Operator Relationship Specialty Start Date End Date Justus Bear MD [address] [place] [phone] PCP - General Internal Medicine 08/13/16 documented as of this encounter
--- OUTSIDE RECORDS SUMMARY | 2025-08-27 15:51 | XMS_ITS | Encounter Summary ---
Author Organization [employer] Address 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 Normal RBC morphology. Mild leukocytosis. Normal differential. Negative for basophilia or eosinophilia. Normal platelet count. PBS evaluation by Dr. Saira Chor [facility] Blood specimen (specimen) 01/23/2008 3:06 PM CDT 01/23/2008 3:06 PM CDT Narrative [facility] - 01/24/2008 6:53 PM CDT add to blood in lab from [facility] ok per hematology rj us Sreekanth Fernandez MD HEMATOLOGY ORDERABLES Final Resu lt [facility] [address] [place], [place] [address] * (ABNORMAL) CBC WITH DIFFERENTIAL (01/23/2008 3:06 PM CDT) MCV 90.3 82.0 - 99.0 fL [facility] PLATELETS 271 140 - 350 K/uL [facility] HEMOGLOBIN 15.2(H) 11.8 - 14.8 g/dL [facility] RDW 12.8 11.5 - 14.5 % [facility] WBC 12.0(H) 4.0 - 9.8 K/uL [facility] MCH 30.1 27.2 - 32.6 pg [facility] MPV 10.8 9.3 - 12.4 fL [facility] HEMATOCRIT 45.6(H) 35.5 - 44.0 % [facility] RDW-STDEV 41.8 37.1 - 48.7 fL [facility] RBC 5.05(H) 3.90 - 4.90 M/uL [facility] MCHC 33.3 31.5 - 35.5 % [facility] EOSINOPHILS 2 0 - 7 % [facility] EOSINOPHIL ABSOLUTE 0.27 0.00 - 0.70 K/uL [facility] LYMPHOCYTES 37 16 - 45 % [facility] LYMPHOCYTE ABSOLUTE 4.45 0.70 - 4.50 K/uL [facility] BASOPHILS 1 0 - 2 % [facility] BASOPHILS ABSOLUTE 0.06 0.00 - 0.20 K/uL [facility] MONOCYTES 5 3 - 13 % [facility] MONOCYTE ABSOLUTE 0.64 0.10 - 1.30 K/uL [facility] NEUTROPHILS 55 45 - 70 % [facility] NEUTROPHIL ABSOLUTE 6.62 1.90 - 7.00 K/uL [facility] Blood specimen (specimen) 01/23/2008 3:06 PM CDT 01/23/2008 8:15 PM CDT Sreekanth Fernandez MD HEMATOLOGY ORDERABLES Edited Performing Organization Address City/[facility]/ZIP Co de Phone Number INTERFACE SYSTEM Refer to clinic/hospital department [facility] [address] [place], [place] [address] * SEDIMENTATION RATE (01/23/2008 3:06 PM CDT) ESR (SEDIMENTATION RATE) 6 0 - 20 mm/hr [facility] Blood specimen (specimen) 01/23/2008 3:06 PM CDT 01/23/2008 8:15 PM CDT Sreekanth Fernandez MD HEMATOLOGY ORDERABLES Final Resu lt Performing Organization Address City/[facility]/ZIP Co de Phone Number [facility] [address] [place] [place] [address] documented in this encounter Visit Diagnoses Diagnosis Other abnormal blood chemistry documented in this encounter Care Teams Mobile Sales Technician Relationship Specialty Start Date End Date Justus Bear MD [address] [place] [phone] PCP - General Internal Medicine 08/13/16 documented as of this encounter
--- OUTSIDE RECORDS SUMMARY | 2025-08-27 15:51 | XMS_ITS | Encounter Summary ---
Author Organization [employer] Address [address] [place] [address] Care Team Providers Care Human Services Assistant Name Role Phone Justus Bear MD Primary Care Provider + Encounter Details Date Type Department Care Team (Latest Contact Info) Description 01/20/2008 Outpatient Historical HIS [facility] Sreekanth Fernandez MD [address] [place] [phone] Routine General Medical Examination at a Health Care Facility Social History Tobacco Use Types Packs/Day Years Used Date Smoking Tobacco: Never Assessed Comments No Sex and Gender Information Value Date Recorded Sex Assigned at Not on file 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 Gender Identity Not on file Sexual Orientation Not on file documented as of this encounter Plan of Treatment Not on file documented as of this encounter Procedures Procedure Name Priority Date/Time Associated Diagnosis Comments URINALYSIS W/REFLEX MICROSCOPIC Routine 01/20/2008 8:02 AM CDT CBC WITH DIFFERENTIAL Routine 01/20/2008 7:56 AM CDT LIPID PANEL Routine 01/20/2008 7:56 AM CDT COMPREHENSIVE METABOLIC PANEL Routine 01/20/2008 7:56 AM CDT documented in this encounter Results * (ABNORMAL) URINALYSIS (01/20/2008 8:02 AM CDT) KETONES UA Negative Negative [facility] COLOR UA Yellow [facility] NITRITE UA Negative Negative [facility] BILIRUBIN UA Negative Negative [facility] CLARITY UA Slt. Cloudy(A) Clear [facility] PH UA 7.0 5.0 - 8.0 [facility] AMORPHOUS CRYSTAL Rare /HPF [facility] WBC UA 1 0 - 5 /HPF [facility] UROBILINOGEN UA <1 <=1 mg/dL [facility] BLOOD UA Negative Negative [facility] SPECIFIC GRAVITY UA 1.015 1.001 - 1.035 [facility] PROTEIN UA Negative Negative [facility] RBC UA 2 0 - 4 /HPF [facility] EPITHELIAL CELLS, URINE 5-10 /HPF [facility] LEUKOCYTE ESTERASE UA Negative Negative [facility] GLUCOSE UA Negative Negative [facility] Urine specimen (specimen) 01/20/2008 8:02 AM CDT 01/20/2008 11:53 AM CDT us Sreekanth Fernandez MD URINE ORDERABLES Final Result [facility] [address] [place] [address] * (ABNORMAL) COMPREHENSIVE METABOLIC PANEL (01/20/2008 7:56 AM CDT) Pathologist [facility] CHLORIDE 103 96 - 108 mmol/L [facility] GLUCOSE 101(H) 65 - 99 mg/dL [facility] AST 20 12 - 32 U/L [facility] SODIUM 138 135 - 145 mmol/L [facility] ALKALINE PHOSPHATASE 47 35 - 104 U/L [facility] ALBUMIN 4.2 3.4 - 4.8 g/dL [facility] CO2 25 22 - 30 mmol/L [facility] ALT 15 0 - 31 U/L [facility] CREATININE 0.77 0.51 - 0.95 mg/dL [facility] POTASSIUM 4.9 3.5 - 4.9 mmol/L [facility] CALCIUM 9.0 8.4 - 10.2 mg/dL [facility] BILIRUBIN TOTAL 0.3 0.2 - 1.0 mg/dL [facility] BUN 14 6 - 20 mg/dL [facility] TOTAL PROTEIN 6.9 6.3 - 8.6 g/dL [facility] GFR, >60 >=60 mL/min/1. 7 sq meter [facility] GFR >60 >=60 mL/min/1. 7 sq meter [facility] Comment: Estimated GFR rate interpretative information for both Americans and non- Americans is available on the [facility]an[facility] at: [email or web address] Select: Lab Policies and Procedures Select: Reference Ranges - GFR Blood specimen (specimen) 01/20/2008 7:56 AM CDT 01/20/2008 11:53 AM CDT us Sreekanth Fernandez MD CHEMISTRY ORDERABLES Edited [facility] [address] [place] [address] * (ABNORMAL) CBC WITH DIFFERENTIAL (01/20/2008 7:56 AM CDT) RDW-STDEV 42.4 37.1 - 48.7 fL [facility] RBC 5.18(H) 3.90 - 4.90 M/uL [facility] MCHC 33.3 31.5 - 35.5 % [facility] MCV 90.3 82.0 - 99.0 fL [facility] PLATELETS 261 140 - 350 K/uL [facility] HEMOGLOBIN 15.6(H) 11.8 - 14.8 g/dL [facility] RDW 12.9 11.5 - 14.5 % [facility] WBC 12.1(H) 4.0 - 9.8 K/uL [facility] MCH 30.1 27.2 - 32.6 pg [facility] MPV 10.8 9.3 - 12.4 fL [facility] HEMATOCRIT 46.8(H) 35.5 - 44.0 % [facility] MONOCYTES 5 3 - 13 % [facility] MONOCYTE ABSOLUTE 0.65 0.10 - 1.30 K/uL [facility] NEUTROPHILS 59 45 - 70 % [facility] NEUTROPHIL ABSOLUTE 7.13(H) 1.90 - 7.00 K/uL [facility] EOSINOPHILS 1 0 - 7 % [facility] EOSINOPHIL ABSOLUTE 0.16 0.00 - 0.70 K/uL [facility] LYMPHOCYTES 34 16 - 45 % [facility] LYMPHOCYTE ABSOLUTE 4.16 0.70 - 4.50 K/uL [facility] BASOPHILS 0 0 - 2 % [facility] BASOPHILS ABSOLUTE 0.04 0.00 - 0.20 K/uL [facility] Blood specimen (specimen) 01/20/2008 7:56 AM CDT 01/20/2008 11:53 AM CDT us Sreekanth Fernandez MD HEMATOLOGY ORDERABLES Edited INTERFACE SYSTEM Refer to clinic/hospital department [facility] [address] [place] [address] * (ABNORMAL) LIPID PANEL (01/20/2008 7:56 AM CDT) CHOL/HDL RATIO 3.9 2.0 - 5.0 [facility] HDL 53 40 - 59 mg/dL [facility] CHOLESTEROL 205(H) 100 - 199 mg/dL [facility] TRIGLYCERIDE 219(H) 10 - 149 mg/dL [facility] LDL CALCULATED 108(H) <=99 mg/dL [facility] LIPID PANEL COMMENT See Below [facility] Comment: The adult ATP and pediatric NCEP classifications for lipids are available on the [facility] Intranet at: [email or web address] Select: Lab Policies and Procedures,Current Select: Lipid Panel Interpretation Blood specimen (specimen) 01/20/2008 7:56 AM CDT 01/20/2008 11:53 AM CDT Sreekanth Fernandez MD CHEMISTRY ORDERABLES Edited [facility] [address] [place] [address] documented in this encounter Visit Diagnoses Diagnosis Routine general medical examination at a health care facility documented in this encounter Care Teams Human Services Assistant Relationship Specialty Start Date End Date Justus Bear MD [address] [place] [phone] PCP - General Internal Medicine 08/13/16 documented as of this encounter
--- OUTSIDE RECORDS SUMMARY | 2025-08-27 15:51 | XMS_ITS | Encounter Summary ---
Author Organization [employer] Address [address] [place] [address] Care Team Providers Care Digital Experience Manager Name Role Phone Justus Bear MD Primary Care Provider + Encounter Details Date Type Department Care Team (Latest Contact Info) Description 12/10/2008 Outpatient Historical [facility], [address] Sreekanth Fernandez MD [address] [place] [phone] Excessive or Frequent Menstruation Social History Tobacco Use Types Packs/Day Years Used Date Smoking Tobacco: Every Day Cigarettes Alcohol Use Standard Drinks/Week Comments Yes 0 (1 standard drink = 0.6 oz pur e alcohol) socially Comments No Sex and Gender Information Value Date Recorded Sex Assigned at Not on file 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
--- OUTSIDE RECORDS SUMMARY | 2025-08-27 15:51 | XMS_ITS | Clinical Summary ---
Author Organization [facility] [employer] Address [address] [place] [address] Care Team Providers Care Tableau Lead Name Role Phone Justus Bear MD Primary Care Provider [phone] Source Comments [facility] [employer],non-owned Affiliates and Associated Physician Practices is amultiple site organization consisting of ambulatory clinics and hospital sitesin [place], [place], [place] and [place]. This disclosure is being madepursuant to the Care Everywhere program and may not contain all information available regarding this patient. Last updated 18.[employer] Allergies Active Allergy Reactions Criticality Noted Date Comments Penicillins Nausea and/or Vomiting 12/11/2013 Medications * Be aware that medications may not be up to date on this document. Alwaysverify current medications with the patient. fluticasone propionate (FLONASE) 50 MCG/ACT nasal sprayIndication s:Seasonal Allergic Rhinitis Belle 2 Sprays into each nostril once daily Reasons: Hayfever Active desvenlafaxine SR 24hr (PRISTIQ) 50 MG tablet Take 50 mg by mouth once daily Active pantoprazole EC (PROTONIX) 40 MG tablet Take 40 mg by mouth once daily Active traMADol (ULTRAM) 50 MG tablet 06/27/2015 Active Active Problems No known active problems Social History Tobacco Use Types Packs/Day Years Used Date Smoking Tobacco: Every Day Cigarettes Tobacco Cessation:Ready to Q uit: No; Counseling Given: No Alcohol Use Standard Drinks/Week Comments Yes 0 (1 standard drink = 0.6 oz pur e alcohol) rarly Comments No Sex and Gender Information Value Date Recorded Sex Assigned at Not on file 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 Gender Identity Not on file Sexual Orientation Not on file Last Filed Vital Signs Vital Sign Reading Time Taken Comments Blood Pressure 106/63 07/18/2015 1:53 PM CDT Pulse 72 07/18/2015 1:53 PM CDT Temperature 36.7 C (98.1 F) 07/18/2015 1:53 PM CDT Respiratory Rate 18 07/18/2015 1:53 PM CDT Oxygen Saturation 97% 07/18/2015 1:53 PM CDT Inhaled Oxygen Concentration - - Weight 80.7 kg (178 lb) 07/18/2015 12:24 PM CDT Height 168.9 cm (5' 6.5) 07/17/2015 4:33 PM CDT Body Mass Index 28.3 07/17/2015 4:33 PM CDT Plan of Treatment Health Maintenance Due Date Last Done Comments COLOGUARD (AGES 45-75) - COL ON CA SCREENING 1966 CT COLONOGRAPHY - COLON CA SCREENING 1966 FIT - COLON CA SCREENING 1966 FLEX SIG - COLON CA SCREENING 1966 LIPID TESTING 1966 HIV SCREENING 1981 HEPATITIS C SCREENING 03/19/1984 DTAP/TDAP/TD VACCINES (1 - Tdap) 1985 HEPATITIS B VACCINE (1 of 3 - 19+ 3-dose series) 1985 PAP SMEAR 1987 Cervical Cancer Screening 1996 PAP with HPV 1996 PNEUMOCOCCAL VACCINE 50+ (1 of 1 - PCV) 2016 ZOSTER VACCINE (1 of 2) 2016 MAMMOGRAM 01/01/2024 12/31/2021 DEPRESSION SCREENING 09/27/2024 COVID-19 VACCINE (1 - 2024-2 6 season) 2025 INFLUENZA VACCINE (#1) 2025 COLON MONITORING 07/18/2025 07/18/2015, 07/18/2015, 07/18/2015 COLONOSCOPY - COLON CA SCREENING 07/18/2025 07/18/2015, 07/18/2015, 07/18/2015 Colorectal Cancer Screening 07/18/2025 HIB VACCINE Aged Out No longer eligi ble based on patient's age to complete this topic HPV VACCINE Aged Out No longer eligi ble based on patient's age to complete this topic MENINGOCOCCAL (Group B) VACCINE SHARED DECISION-MAKING Aged Out No longer eligible based on patient's age to complete this topic MENINGOCOCCAL GROUPS A/C/Y/W VACCINE Aged Out No longer eligible b ased on patient's age to complete this topic Procedures Procedure Name Priority Date/Time Associated Diagnosis Comments ENDOSCOPY, COLON, SCREENING Routine 07/18/2015 1:09 PM CDT from Last 3 Months or Most Recently Relevant to Health Maintenance Results * ENDOSCOPY, COLON, SCREENING (07/18/2015 1:09 PM CDT) Report Endoscopy POC _ Patient Name: Barbara Perez Procedure Date: 07/18/2015 1:09 PM Date of : 1965 Admit Type: Outpatient Age: 50 Room: ROOM 1 Gender: Female Note Status: Finalized Attending MD: Ronak Becker MD _ Procedure: Colonoscopy Indications: High risk colon cancer surveillance: Personal history of colonic polyps Providers: Ronak Becker MD, Deepthi Smith RN, Lory Nichols RN, GUSTAVO KERR CRNA (Anesthesia Staff) Referring MD: Justus Bear MD (Referring MD) Medicines: Propofol per Anesthesia Complications: No immediate complications. _ Procedure: After I obtained informed consent, the scope was passed under direct vision. Throughout the procedure, the patient's blood pressure, pulse, and oxygen saturations were monitored continuously. The CF-H180AL was introduced through the anus and advanced to the terminal ileum. The quality of the bowel preparation was good. Findings: A diminutive polyp was found in the sigmoid colon. The polyp was sessile. The polyp was removed with a hot biopsy forceps. Resection and retrieval were complete. A few small-mouthed diverticula were found in the sigmoid colon. The exam was otherwise without abnormality. _ Impression: - One diminutive polyp in the sigmoid colon. Resected and retrieved. - Diverticulosis in the sigmoid colon. - The examination was otherwise normal. Recommendation: - High fiber diet. - Repeat colonoscopy for surveillance based on pathology results. Procedure Code(s): --- Professional --- 09699, Colonoscopy, flexible; with removal of tumor(s), polyp(s), or other lesion(s) by hot biopsy forceps --- Technical --- 99131, Colonoscopy, flexible; with removal of tumor(s), polyp(s), or other lesion(s) by hot biopsy forceps Diagnosis Code(s): --- Professional --- Z86.010, Personal history of colonic polyps D12.5, Benign neoplasm of sigmoid colon K57.30, Diverticulosis of large intestine without perforation or abscess without bleeding --- Technical --- Z86.010, Personal history of colonic polyps D12.5, Benign neoplasm of sigmoid colon K57.30, Diverticulosis of large intestine without perforation or abscess without bleeding CPT copyright 2014 [employer]. All rights reserved. The codes documented in this report are preliminary and upon business and services instructor review may be revised to meet current compliance requirements. ___ Ronak Becker MD 07/18/2015 1:53 PM This report has been signed electronically. Number of Addenda: 0 Note Initiated On: 07/18/2015 1:09 PM Estimated Blood Loss: Estimated blood loss: none. [facility] 07/18/2015 1:09 PM CDT us Ronak Becker MD GI PROCEDURE ORDERABLES Edit ed Result - Final [facility] ENDOSCOPY from Last 3 Months or Most Recently Relevant to Health Maintenance Insurance [facility] Care Teams Tableau Lead Relationship Specialty Start Date End Date Justus Bear MD PCP - General Internal Medicine 07/16/15
--- OUTSIDE RECORDS SUMMARY | 2025-08-27 15:51 | XMS_ITS | Clinical Summary ---
Author Organization [facility] Address [facility] [place] [address] Care Team Providers Care High School Assistant Principal Name Role Phone Justus Bear MD Primary Care Provider [phone] Social History Tobacco Use Types Packs/Day Years Used Date Smoking Tobacco: Never Assessed Comments Unknown Sex and Gender Information Value Date Recorded Sex Assigned at Not on file Legal Sex Female 11:45 AM CDT Gender Identity Not on file Sexual Orientation Not on file Plan of Treatment Health Maintenance Due Date Last Done Comments Cervical Cancer Screening Pa p Smear (Age 30 to 64) Every 3 Years 1966 Colorectal Cancer Screening Colonoscopy (10 Years) 1966 Annual Physical 1969 Hepatitis C 1984 Cervical Cancer Screening Pa p with HPV Testing (Age 30 to 64) Every 5 Years 1996 Cervical Cancer Screening wi th HPV 1996 DTaP, Tdap and Td Vaccines ( 1 - Tdap) 02/26/2005 02/25/2005 Mammogram Screening 2006 Pneumococcal Vaccine: 50+ Years (2 of 2 - PCV20 or PCV21) 06/15/2018 06/15/2017 COVID-19 Vaccine (2 - 2024-2 6 season) 2025 12/03/2020 Influenza Adult (#1) 2025 Zoster Vaccines Completed 10/15/2020, 05/28/2020 Hepatitis A Vaccines Aged Out No long er eligible based on patient's age to complete this topic Meningococcal B Vaccine Aged Out No l onger eligible based on patient's age to complete this topic Meningococcal Vaccine Aged Out No jaz david eligible based on patient's age to complete this topic RSV Immunizations Under 20 Months Aged Out No longer eligible b ased on patient's age to complete this topic Insurance [facility] Care Teams High School Assistant Principal Relationship Specialty Start Date End Date Justus Bear MD [address] [place] [address] PCP - General INTERNAL MEDICINE 07/15/21
--- OUTSIDE RECORDS SUMMARY | 2025-08-27 15:51 | XMS_ITS | Encounter Summary ---
Author Organization [employer] [facility] Address 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 Gender Identity Not on file Sexual Orientation Not on file documented as of this encounter Plan of Treatment Not on file documented as of this encounter Procedures Procedure Name Priority Date/Time Associated Diagnosis Comments US PELVIS + TRANSVAG NON OB Routine 03/20/2008 11:27 AM CDT documented in this encounter Results * US PELVIS + TRANSVAG NON OB (03/20/2008 11:27 AM CDT) Anatomical Region Laterality Modality Pelvis Other 03/20/2008 11:2 7 AM CDT Narrative 03/21/2008 2:51 PM CDT [facility] [address] [place], [place] [address] Admit Date: 03/20/2008 EARL ALVAREZ Sex: F Admit Prov: SREEKANTH FERNANDEZ Date: 1965 Primary Care Prov: SREEKANTH FERNANDEZ CMRN: [id number] [phone] IM[facility] Ordering Prov: N/A Accession Number: [id number] Interpretation PELVIC ULTRASOUND, 03/20/2008 Clinical History: Pelvic pain. Findings: Sagittal and transverse real-time examination reveals the uterus to be 9.9 x 4.7 x 6.8 cm in size. The left ovary is 3.7 x 2.9 x 3.5 cm in size and appears normal. The right ovary is 2.1 x 2.6 x 2.6 cm in size and appears normal. No abnormal masses or cysts are demonstrated, and there is no free fluid. TRANSVAGINAL PELVIC ULTRASOUND, 03/20/2008 Findings: Sagittal and transverse transvaginal pelvic ultrasound reveals the endometrial echo to be difficult to see, even with transvaginal technique. It measures about 3 mm. There is probably a small fibroid in the anterior aspect of the body of the uterus measuring 1.3 x 1.2 x 0.9 cm in size. The left ovary on the transvaginal study is 2.7 x 1.5 x 2.2 cm in size and appears normal. The right ovary is 2.3 x 2.0 x 1.5 cm in size and appears normal. There is normal Doppler signal in both ovaries. Conclusion: Tiny uterine fibroid but otherwise negative examination. . Dictated by: SREEDHAR ANAYA 03/20/2008 11:33 Electronically signed by: SREEDHAR ANAYA 03/21/2008 14:50 Transcribed: 03/20/2008 18:18 SJ Procedure Note Provider, Historical - 03/21/2008 [facility] [address] [place], [place] [address] Admit Date: 03/20/2008 EARL ALVAREZ Sex: F Admit Prov: SREEKANTH FERNANDEZ Date: 1965 Primary Care Prov: SREEKANTH FERNANDEZ CMRN: [id number] Room: [facility] SSN: [id number] IMAGING SERVICES Ordering Prov: N/A Interpretation PELVIC ULTRASOUND, 03/20/2008 Clinical History: Pelvic pain. Findings: Sagittal and transverse real-time examination reveals theuterus to be 9.9 x 4.7 x 6.8 cm in size. The left ovary is 3.7 x 2.9 x 3.5cm in size and appears normal. The right ovary is 2.1 x 2.6 x 2.6 cm insize and appears normal. No abnormal masses or cysts are demonstrated, andthere is no free fluid. TRANSVAGINAL PELVIC ULTRASOUND, 03/20/2008 Findings: Sagittal and transverse transvaginal pelvic ultrasoundreveals the endometrial echo to be difficult to see, even with transvaginal technique. It measures about 3 mm. There is probably a small fibroidin the anterior aspect of the body of the uterus measuring 1.3 x 1.2 x 0.9cm in size. The left ovary on the transvaginal study is 2.7 x 1.5 x 2.2 cmin size and appears normal. The right ovary is 2.3 x 2.0 x 1.5 cm insize and appears normal. There is normal Doppler signal in both ovaries. Conclusion: Tiny uterine fibroid but otherwise negative examination. . Dictated by: SREEDHAR ANAYA 03/20/2008 11:33 Electronically signed by: SREEDHAR ANAYA 03/21/2008 14:50 Transcribed: 03/20/2008 18:18 SJ Sreekanth Fernandez MD ORDERABLES Final Result documented in this encounter Visit Diagnoses Diagnosis Unspecified symptom associated with female genital organs documented in this encounter Care Teams Labor Contractor Relationship Specialty Start Date End Date Justus Bear MD [address] [place] [address] PCP - General Internal Medicine 08/13/16 documented as of this encounter
--- OUTSIDE RECORDS SUMMARY | 2025-08-27 15:51 | XMS_ITS | Encounter Summary ---
Author Organization [employer] Address 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 Gender Identity Not on file Sexual Orientation Not on file documented as of this encounter Plan of Treatment Not on file documented as of this encounter Procedures Procedure Name Priority Date/Time Associated Diagnosis Comments CERV/VAG CYTOPATH, THIN PREP W/RFLX HPV Routine 01/16/2008 11:06 PM CDT documented in this encounter Results * CERV/VAG CYTOPATH, THIN PREP W/RFLX HPV (01/16/2008 11:06 PM CDT) SOURCE Cervix [facility] LAST MENSTRUAL PERIOD IRREGULAR [facility] REVIEW CYTOTECHNOLOGI ST: MVW, CT(ASCP) [facility] [place] Comment: Lab test performed by: [employer] [facility] [employer] [place] [address] VILLA SELF MD REPORT STATUS FINAL [facility] CYTOTECHNOLOGI ST: ABC, CT(ASCP) [facility] [place] CLINICAL INFORMATION 7 or more years since last Pap Normal exam [facility] [place] [place] ADEQUACY: Satisfactory for evaluation. Endocervical/trans formation zone component present. [facility] [place] [place] PREV BX: INFORMATION NOT PROVIDED [facility] [place] [place] PAP INTERP Negative for intraepithelial lesion or malignancy. [facility] [place] [place] PREV PAP: INFORMATION NOT PROVIDED [facility] Pathologist Assistant Pap Comment Based on the cytology result, reflex High Risk HPV DNA testing was not performed. [facility] Specimen from uterine cervix (specimen) 01/16/2008 11:06 PM CDT 01/16/2008 11:08 PM CDT us Sreekanth Fernandez MD PATHOLOGY/CYTOLOGY ORDERABLES nal Result [facility] [address] [place] [address] documented in this encounter Visit Diagnoses Diagnosis Routine gynecological examination documented in this encounter Care Teams Block Cableman Relationship Specialty Start Date End Date Justus Bear MD [address] [place] [address] PCP - General Internal Medicine 08/13/16 documented as of this encounter
--- OUTSIDE RECORDS SUMMARY | 2025-08-27 15:51 | XMS_ITS | Encounter Summary ---
Author Organization [facility] Address [address] [place] [address] Phone Care Team Providers Care Arranger Assembler Name Role Phone Justus Bear MD Primary Care Provider + [phone] Luisa Akers DO Unavailable [phone] Encounter Details Date Type Department Care Team (Late st Contact Info) Description 09/23/2020 Telephone [facility] Surgery [address] [place] [address] Advanced Medicine 5th [place] [address] [place] [address] Oneyda Polo Social History Tobacco Use Types Packs/Day Years Used Date Smoking Tobacco: Every Day Cigarettes 0.1 40 Smokeless Tobacco: Never Alcohol Use Standard Drinks/Week Comments No 0 (1 standard drink = 0.6 oz pur e alcohol) Comments No Sex and Gender Information Value Date Recorded Sex Assigned at Not on file 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 Gender Identity Female 12/24/2020 2:52 PM CDT Sexual Orientation Not on file 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
--- OUTSIDE RECORDS SUMMARY | 2025-08-27 15:51 | XMS_ITS | Encounter Summary ---
Author Organization [facility] Address 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, [place] [address] Patient: BARBARA ALVAREZ : 1965 Procedure Date: 01/31/2008 Accession Date: 01/31/2008 Case No: [id number] Ordering Dr: SCOTT LUBIN Case types AW, BW, FW, NW and SH are performed [place] [facility] [place] SURGICAL PATHOLOGY & NON-GYNECOLOGIC CYTOPATHOLOGY REPORT DIAGNOSIS BREAST, RIGHT, UPPER OUTER QUADRANT, NEEDLE BIOPSIES: - DUCTAL CARCINOMA, INVASIVE (SEE DESCRIPTION). Specimen Description: Right breast mass in formalin at 9 a.m. Operative Procedure: 4 x 10-gauge cores. Patient Information/History/Di agnosis: Solid mass, right upper outer quadrant. ?IDC. Gross: Received in one container labeled Barbara Alvarez., right are five yellow- white tissue cores, 1.2 cm, 1.9 cm, 1.6 cm, 0.8 cm, and 2.0 cm in length, ranging in diameter from 0.2 cm to 0.5 cm. Also received are four core fragments, ranging from 0.1 cm to 0.3 cm. The specimen is submitted entirely in blocks A1 and A2. [facility] 01.31.2008 03:18 pm Microscopic: The slides are labeled Barbara Alvarez and [id number]. Several of the needle biopsies from the right breast contain areas of invasive carcinoma composed of infiltrating and anastomosing cords and nests of malignant cells showing very focal tubule formation, low nuclear grade, and low mitotic activity (Butterfield-Brewer score 5 low-grade). There is an associated reactive fibroblastic stroma. In a few areas, the carcinoma has a single file pattern, but there is focal tubule formation; the overall features favor an invasive ductal carcinoma. A definite in situ component is not identified. No vascular invasion is identified. The invasive carcinoma measures 0.8 cm in greatest linear length. JCL/SKW 02.01.2008 01:43 pm Staging Form: Yes. ELECTRONIC SIGNATURE FOR SUSAN BAEZA M.D.- 02/02/08 11:06 am INTERFACE SYSTEM ADDENDUM REPORT [address] [address] Patient: BARBARA ALVAREZ : 1965 Procedure Date: 01/31/2008 Accession Date: 01/31/2008 Case No: [id number] Ordering Dr: SCOTT LUBIN Case types AW, BW, FW, NW and SH are [place] [facility] [place] ADDENDUM REPORT NOTE: This addendum is issued to report results of ancillary studies. DIAGNOSIS: INVASIVE DUCTAL CARCINOMA. Site: Right breast. Block #: [id number]. Duration of Fixation*: 10 hours. Test Results ER (immunohistochemistry) = 8/8 (positive) DC (immunohistochemistry) = 8/8 (positive) HER-2 gene amplification (FISH) = 1.2 (unamplified) MIB-1 (immunohistochemistry) = 9% (low-favorable) METHODS AND REFERENCE RANGES Estrogen Receptor/Progesterone Receptor: Estrogen and progesterone receptor content is assayed in a semiquantitative manner utilizing the Dako Cytomation ER/DC pharmDx immunohistochemical kit. Results are reported as a total score (range 0 to 8) which equals the sum of the proportion score (percentage of tumor cells with positive nuclear staining) and the intensity score (average staining intensity of all positive tumor cells). Reference Ranges Total Score 0-2 = negative >= 3 = positive Proportion Score (% positive cells) 0 = none 1 = > 0 to 1% 2 = > 1% to 10% 3 = > 10% to 33.3% 4 = > 33.3% to 67.7% 5 = > 67.7% Intensity Score (average staining intensity) 0 = none 1 = weak 2 = intermediate 3 = strong HER-2 Gene Amplification: Cases are sent to [facility], [place], [place], for performance and interpretation of fluorescence in situ hybridization (FISH) for detection of possible HER-2 gene amplification. Reference Ranges Amplified (Positive) HER-2/CEP-17 ratio > 2.2 Borderline Amplified (Borderline) HER-2/CEP-17 ratio 1.8 - 2.2 UnAmplified (Negative) HER-2/CEP-17 ratio < 1.8 HER-2 gene amplification is assessed utilizing the PathVysion assay (Vysis Young., [place], [place]). The identification probes for HER-2 (SpectrumOrange) and alpha satellite DNA sequence at the centromeric region of chromosome 17 (SpectrumGreen) are hybridized according to the police magistrate's guidelines. At least twenty non- overlapping nuclei containing at least one orange and one green signal are enumerated. The ratio of orange signals (HER-2 gene) to green signals (chromosome 17) is calculated. A ratio greater than or equal to 2.0 is considered amplified based on the FDA approval in this kit. The CAP HER-2 consensus conference 2002 suggested that a ratio of 1.8 - 2.2 be considered borderline. A copy of the complete report from [facility] is available for review from the Pathology Department. If FISH results are unavailable due to technical factors or are equivocal (borderline), HER2 expression will be assessed by immunohistochemistry. HER-2 Protein Expression: The Dako Hercept Test kit is utilized. Stains are performed and interpreted by [facility]. Interpretation may be performed manually or by image analysis. A copy of the complete report is available for review from the Pathology Department. Reference Ranges 0 1+ = not overexpressed. 2+ = borderline 3+ = overexpressed. MIB-1 (Ki-67) Proliferation Index: Immunohistochemical stain for MIB-1 (performed by [facility]) is utilized to assess tumor cell proliferation. The percent of positive cells is determined with the aid of image analysis ([employer] 2.4 software). MIB-1 measures the percentage of tumor cells in the G1, S, G2, and M phases of the cell cycle. Data are reported as percent of tumor cell nuclei staining. Reference Ranges Low (Favorable) <= 10% Borderline > 10% to <= 20% High (Unfavorable) > 20% * Method of fixation is neutral buffered formalin unless otherwise specified._ [facility] 02.08.08 ELECTRONIC SIGNATURE FOR MARCELLA KAUFMAN M.D. - 02/08/08 08:17 am SURGICAL PATHOLOGY & NON-GYNECOLOGIC CYTOPATHOLOGY REPORT DIAGNOSIS BREAST, RIGHT, UPPER OUTER QUADRANT, NEEDLE BIOPSIES: - DUCTAL CARCINOMA, INVASIVE (SEE DESCRIPTION). Specimen Description: Right breast mass in formalin at 9 a.m. Operative Procedure: 4 x 10-gauge cores. Patient Information/History/Di agnosis: Solid mass, right upper outer quadrant. ?IDC. Gross: Received in one container labeled Barbara Alvarez, right are five yellow- white tissue cores, 1.2 cm, 1.9 cm, 1.6 cm, 0.8 cm, and 2.0 cm in length, ranging in diameter from 0.2 cm to 0.5 cm. Also received are four core fragments, ranging from 0.1 cm to 0.3 cm. The specimen is submitted entirely in blocks A1 and A2. [facility] 01.31.2008 03:18 pm Microscopic: The slides are labeled Barbara Alvarez and [id number]. Several of the needle biopsies from the right breast contain areas of invasive carcinoma composed of infiltrating and anastomosing cords and nests of malignant cells showing very focal tubule formation, low nuclear grade, and low mitotic activity (Butterfield-Brewer score 5 low-grade). There is an associated reactive fibroblastic stroma. In a few areas, the carcinoma has a single file pattern, but there is focal tubule formation; the overall features favor an invasive ductal carcinoma. A definite in situ component is not identified. No vascular invasion is identified. The invasive carcinoma measures 0.8 cm in greatest linear length. JCL/SKW 02.01.2008 01:43 pm Staging Form: Yes. ELECTRONIC SIGNATURE FOR SUSAN BAEZA M.D.- 02/02/08 11:06 am INTERFACE SYSTEM 01/31/2008 12:3 5 PM CDT us Scott Lubin MD PATHOLOGY/CYTOLOGY ORDERABL ES Edited INTERFACE SYSTEM Refer to clinic/hospital department * MAMMO DIGITAL DIAG UNI RIGHT (01/31/2008 9:29 AM CDT) Anatomical Region Laterality Modality Breast Right Other 01/31/2008 9:29 AM CDT Narrative 02/15/2008 5:07 PM CDT [facility] [address] [place], [place] [address] Admit Date: 01/31/2008 BARBARA ALVAREZ Sex: F Admit Prov: GINETTE FERNANDEZ Date: 1965 Primary Care Prov: GINETTE FERNANDEZ CMRN: [id number] Room: [facility] SSN: [id number] IMAGING SERVICES Ordering Prov: GINETTE FERNANDEZ Accession Number: [id number] Addendum ADDENDUM TO MAMMOGRAPHY REPORT OF 01/31/2008 Pathology results from ultrasound-guided biopsy of a mass in the right breast upper-outer quadrant, showed low-grade invasive ductal carcinoma. Imaging findings and pathology findings are concordant. Assessment BIRADS: 4-Suspicious abnormality, biopsy should be considered Recommendation: Biopsy should be considered Dictated by: SCOTT LUBIN Electronically signed by: SCOTT LUBIN 02/15/2008 17:07 Transcribed: 02/15/2008 16:39 DKT Addendum Since the prior report, the patient's previous mammograms from an outside institution have become available for review. These are dated 05/18/2006. The current study shows dense parenchyma. At the site of palpable mass in the upper-outer quadrant, there is suggestion of a mass with architectural distortion. The appearances have changed since 05/18/06. There is no calcification or adenopathy. Conclusion: Ill-defined mass with distortion in the right breast, not clearly seen on outside mammograms from 05/18/06. Recommendations: This lesion was subsequently biopsied under sonographic guidance. Pathology results are pending. Assessment BIRADS: 4-Suspicious abnormality, biopsy should be considered Recommendation: Biopsy should be considered Dictated by: OSMANI PERRY Electronically signed by: OSMANI PERRY 02/06/2008 12:45 Transcribed: 02/06/2008 08:35 AMK Interpretation ULTRASOUND NEEDLE BIOPSY GUIDANCE RIGHT BREAST, UNILATERAL RIGHT DIGITAL MAMMOGRAM, 01/31/2008 Clinical History: Ms. Alvarez is a 42-year-old female who presented on 01/26/2008 for a palpable lump in the right breast upper-outer quadrant which she describes as present for approximately 2 years and enlarging. Evaluation demonstrated an irregular solid mass in the right upper-outer quadrant. She presents for ultrasound-guided biopsy. The patient's medical history was reviewed. The risks, and potential complications of percutaneous biopsy, including bleeding and infection, were discussed with the patient and her written informed consent was obtained. Ms. Alvarez was placed in the LPO position on the ultrasound table and the mass in the right upper-outer quadrant was localized with ultrasound. The skin over the site selected for biopsy access was prepped in the usual sterile fashion. 1% lidocaine was administered for subcutaneous anesthesia, and 2% lidocaine with epinephrine was infiltrated about the mass. A skin jimena was made with a #11 blade. Under ultrasound guidance, a 10-gauge vacuum-assisted Vacora hand-held biopsy device was introduced and advanced to the mass where four core specimens were obtained. The excised tissue was placed in formalin and transported to pathology. A biopsy marker was placed within the residual mass. Manual pressure was applied until hemostasis was obtained. The skin was closed with Dermabond and supported with a Steri- Strip. Postbiopsy two-view mammography, confirmed postbiopsy changes at the site of the mass in the right upper-outer quadrant, and that the tissue marker was in the expected location of the biopsy bed. An ice pack was applied to the biopsy site. The patient was given written and verbal postbiopsy instructions. She tolerated the procedure well, and left the radiology department in good condition, without evidence of immediate complication. Impression: Ultrasound-guided core biopsy of a solid mass in the right upper-outer quadrant was performed. An addendum report will be issued when the pathology results become available. Report revised on 02/15/2008 5:07:20 PM by SCOTT LUBIN Assessment BIRADS: 4-Suspicious abnormality, biopsy should be considered Recommendation: Biopsy should be considered Dictated by: SCOTT LUBIN Electronically signed by: SCOTT LUBIN 01/31/2008 16:02 Transcribed: 01/31/2008 13:30 DKT Procedure Note Scott Lubin / Osmani Perry MD - 02/15/[address] [address] Admit Date: 01/31/2008 BARBARA ALVAREZ Sex: F Admit Prov: GINETTE FERNANDEZ Date: 1965 Primary Care Prov: GINETTE FERNANDEZ CMRN: [id number] Room: SUSAN SSN: [id number] IMAGING SERVICES Ordering Prov: GINETTE FERNANDEZ Addendum ADDENDUM TO MAMMOGRAPHY REPORT OF 01/31/2008 Pathology results from ultrasound-guided biopsy of a mass in theright breast upper-outer quadrant, showed low-grade invasive ductalcarcinoma. Imaging findings and pathology findings are concordant. Assessment BIRADS: 4-Suspicious abnormality, biopsy should beconsidered Recommendation: Biopsy should be considered Dictated by: SCOTT LUBIN Electronically signed by: SCOTT LUBIN 02/15/2008 17:07 Transcribed: 02/15/2008 16:39 DKT Addendum Since the prior report, the patient's previous mammograms from [facility] have become available for review. These are dated05/18/2006. The current study shows dense parenchyma. At the site of palpablemass in the upper-outer quadrant, there is suggestion of a mass witharchitectural distortion. The appearances have changed since 05/18/06. There is no calcification or adenopathy. Conclusion: Ill-defined mass with distortion in the right breast,not clearly seen on outside mammograms from 05/18/06. Recommendations: This lesion was subsequently biopsied undersonographic guidance. Pathology results are pending. Assessment BIRADS: 4-Suspicious abnormality, biopsy should beconsidered Recommendation: Biopsy should be considered Dictated by: OSMANI PERRY Electronically signed by: OSMANI PERRY 02/06/2008 12:45 Transcribed: 02/06/2008 08:35 AMK Interpretation ULTRASOUND NEEDLE BIOPSY GUIDANCE RIGHT BREAST, UNILATERAL RIGHTDIGITAL MAMMOGRAM, 01/31/2008 Clinical History: Ms. Alvarez is a 42-year-old female who presentedon 01/26/2008 for a palpable lump in the right breast upper-outer quadrantwhich she describes as present for approximately 2 years and enlarging. Evaluation demonstrated an irregular solid mass in the rightupper-outer quadrant. She presents for ultrasound-guided biopsy. The patient's medical history was reviewed. The risks, andpotential complications of percutaneous biopsy, including bleeding andinfection, were discussed with the patient and her written informed consentwas obtained. Ms. Alvarez was placed in the LPO position on the ultrasound table andthe mass in the right upper-outer quadrant was localized with ultrasound.The skin over the site selected for biopsy access was prepped in theusual sterile fashion. 1% lidocaine was administered for subcutaneousanesthesia, and 2% lidocaine with epinephrine was infiltrated about the mass. Askin jimena was made with a #11 blade. Under ultrasound guidance, [id number] vacuum-assisted Vacora hand-held biopsy device was introduced andadvanced to the mass where four core specimens were obtained. The excisedtissue was placed in formalin and transported to pathology. A biopsy marker wasplaced within the residual mass. Manual pressure was applied untilhemostasis was obtained. The skin was closed with Dermabond and supported with aSteri- Strip. Postbiopsy two-view mammography, confirmed postbiopsy changes at thesite of the mass in the right upper-outer quadrant, and that the tissuemarker was in the expected location of the biopsy bed. An ice pack wasapplied to the biopsy site. The patient was given written and verbalpostbiopsy instructions. She tolerated the procedure well, and left theradiology department in good condition, without evidence of immediatecomplication. Impression: Ultrasound-guided core biopsy of a solid mass in theright upper-outer quadrant was performed. An addendum report will be issuedwhen the pathology results become available. Report revised on 02/15/2008 5:07:20 PM by SCOTT LUBIN Assessment BIRADS: 4-Suspicious abnormality, biopsy should beconsidered Recommendation: Biopsy should be considered Dictated by: SCOTT LUBIN Electronically signed by: SCOTT LUBIN 01/31/2008 16:02 Transcribed: 01/31/2008 13:30 DKT Ginette Fernandez MD MAMMO ORDERABLES Edited * US GUIDE NEEDLE PLACEMENT (01/31/2008 9:25 AM CDT) Anatomical Region Laterality Modality Other 01/31/2008 9:25 AM CDT Narrative 01/31/2008 4:02 PM CDT [address] [address] Admit Date: 01/31/2008 BARBARA ALVAREZ Sex: F Admit Prov: GINETTE FERNANDEZ Date: 1965 Primary Care Prov: GINETTE FERNANDEZ CMRN: [id number] Room: SUSAN SSN: [id number] IMAGING SERVICES Ordering Prov: GINETTE FERNANDEZ Accession Number: [id number] Interpretation ULTRASOUND NEEDLE BIOPSY GUIDANCE RIGHT BREAST, UNILATERAL RIGHT DIGITAL MAMMOGRAM, 01/31/2008 Clinical History: Ms. Alvarez is a 42-year-old female who presented on 01/26/2008 for a palpable lump in the right breast upper-outer quadrant which she describes as present for approximately 2 years and enlarging. Evaluation demonstrated an irregular solid mass in the right upper-outer quadrant. She presents for ultrasound-guided biopsy. The patient's medical history was reviewed. The risks, and potential complications of percutaneous biopsy, including bleeding and infection, were discussed with the patient and her written informed consent was obtained. Ms. Alvarez was placed in the LPO position on the ultrasound table and the mass in the right upper-outer quadrant was localized with ultrasound. The skin over the site selected for biopsy access was prepped in the usual sterile fashion. 1% lidocaine was administered for subcutaneous anesthesia, and 2% lidocaine with epinephrine was infiltrated about the mass. A skin jimena was made with a #11 blade. Under ultrasound guidance, a 10-gauge vacuum-assisted Vacora hand-held biopsy device was introduced and advanced to the mass where four core specimens were obtained. The excised tissue was placed in formalin and transported to pathology. A biopsy marker was placed within the residual mass. Manual pressure was applied until hemostasis was obtained. The skin was closed with Dermabond and supported with a Steri- Strip. Postbiopsy two-view mammography, confirmed postbiopsy changes at the site of the mass in the right upper-outer quadrant, and that the tissue marker was in the expected location of the biopsy bed. An ice pack was applied to the biopsy site. The patient was given written and verbal postbiopsy instructions. She tolerated the procedure well, and left the radiology department in good condition, without evidence of immediate complication. Impression: Ultrasound-guided core biopsy of a solid mass in the right upper-outer quadrant was performed. An addendum report will be issued when the pathology results become available. Dictated by: SCOTT LUBIN Electronically signed by: SCOTT LUBIN 01/31/2008 16:02 Transcribed: 01/31/2008 13:30 DKT Procedure Note Scott Lubin - 01/31/2008 [facility] [address] [place], [place] [address] Admit Date: 01/31/2008 ANTONIO BARBARA Sales Sex: F Admit Prov: GINETTE FERNANDEZ Date: 1965 Primary Care Prov: GINETTE FERNANDEZ CMRN: [id number] Room: [facility] SSN: [id number] IMAGING SERVICES Ordering Prov: GINETTE FERNANDEZ Interpretation ULTRASOUND NEEDLE BIOPSY GUIDANCE RIGHT BREAST, UNILATERAL RIGHTDIGITAL MAMMOGRAM, 01/31/2008 Clinical History: Ms. Alvarez is a 42-year-old female who presentedon 01/26/2008 for a palpable lump in the right breast upper-outer quadrantwhich she describes as present for approximately 2 years and enlarging. Evaluation demonstrated an irregular solid mass in the rightupper-outer quadrant. She presents for ultrasound-guided biopsy. The patient's medical history was reviewed. The risks, andpotential complications of percutaneous biopsy, including bleeding andinfection, were discussed with the patient and her written informed consentwas obtained. Ms. Alvarez was placed in the LPO position on the ultrasound table andthe mass in the right upper-outer quadrant was localized with ultrasound.The skin over the site selected for biopsy access was prepped in theusual sterile fashion. 1% lidocaine was administered for subcutaneousanesthesia, and 2% lidocaine with epinephrine was infiltrated about the mass. Askin jimena was made with a #11 blade. Under ultrasound guidance, [id number] vacuum-assisted Vacora hand-held biopsy device was introduced andadvanced to the mass where four core specimens were obtained. The excisedtissue was placed in formalin and transported to pathology. A biopsy marker wasplaced within the residual mass. Manual pressure was applied untilhemostasis was obtained. The skin was closed with Dermabond and supported with aSteri- Strip. Postbiopsy two-view mammography, confirmed postbiopsy changes at thesite of the mass in the right upper-outer quadrant, and that the tissuemarker was in the expected location of the biopsy bed. An ice pack wasapplied to the biopsy site. The patient was given written and verbalpostbiopsy instructions. She tolerated the procedure well, and left theradiology department in good condition, without evidence of immediatecomplication. Impression: Ultrasound-guided core biopsy of a solid mass in theright upper-outer quadrant was performed. An addendum report will be issuedwhen the pathology results become available. 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
--- OUTSIDE RECORDS SUMMARY | 2025-08-27 15:51 | XMS_ITS | Clinical Summary ---
Author Organization [facility] Address [address] [place] [id number] Care Team Providers Care Security Agent Name Role Phone Justus Bear MD Primary Care Provider + [phone] StephenPavan landryet DO Unavailable [phone] Allergies Active Allergy Reactions Criticality Noted Date Comments Penicillins Nausea And Vomiting,Dizziness Low 12/11 Medications rosuvastatin (CRESTOR) 20 mg tablet daily. Active cetirizine 10 mg capsule daily. Active desvenlafaxine ER (PRISTIQ, KHEDEZLA) 100 mg 24 hr tablet 02/06/2019 Act justin gabapentin (NEURONTIN) 300 mg capsuleIndicati ons:2 at bedtime 1 in AM Take 1 capsule (300 mg total) by mouth 3 01/11/[address] (PROTONIX) 20 mg EC tablet 02/19/2020 Active acetaminophen ER (TYLENOL) 650 mg 8 hr tabletIndicatio ns:3 tablets po tid Take 1 tablet (650 mg total) by mouth every 8 (eight) hours as needed for pain Active biotin 1 mg tablet Take 3 tablets (3,000 mcg total) by mouth 2 (two) times a day Active collagen, hydrolysate, bovine, (collagen, hydr, bovine,, bulk,) 100 % powder Active cyclobenzaprine (FLEXERIL) 10 mg tablet Take 1 tablet (10 mg total) by mouth nightly 12/03/2021 Active Active Problems Problem Noted Date Diagnosed Date Mouth sores 02/16/2019 History of right breast cancer 08/08/2018 Immunizations Immunization Administration Dates Next Due Td, adsorbed 02/25/2005 Tdap 08/14/2014 Surgical History Surgery Date Site/Laterality Comments FINGER SURGERY 09/27/2016 - 09/26/2017 BREAST LUMPECTOMY 02/27/2008 Right ENDOMETRIAL ABLATION 11/20/2009 novasure MASTOIDECTOMY TUBAL LIGATION 11/20/2009 Bilateral Medical History Medical History Date Comments Personal history of malignan t neoplasm of right breast 2007 History of malignant neoplas m of breast - (Added by TW Conv) Fungus infection Tobacco abuse Depression Hepatitis B 1987 Hypercholesteremia Hearing loss Rheumatoid arthritis (HCC) COVID-19 vaccine administered 2020 J& J Family History Medical History Relation Name Comments Lung cancer Father Family history of lung cancer - (Added by TW Conv) Lung cancer Mother Family history of lung cancer - (Added by TW Conv) Rheum arthritis Sister Breast cancer Neg Hx Ovarian cancer Neg Hx Relation Name Status Comments Father Mother Sister Social History Tobacco Use Types Packs/Day Years Used Date Smoking Tobacco: Former Cigarettes 0.1 40 1 09/27/1980 - 07/28/2021 Passive Smoke Exposure: Past Smokeless Tobacco: Never Tobacco Cessation:Counseling Given: Not Answered Alcohol Use Standard Drinks/Week Comments No 0 (1 standard drink = 0.6 oz pur e alcohol) AUDIT-C Answer Date Recorded Q1: How often do you have a drink containing alcohol? Never 02/08/2023 Q2: How many drinks containi ng alcohol do you have on a typical day when you are drinking? Patient does not drink Q3: How often do you have si x or more drinks on one occasion? 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 3, para 2. She has used oral contraceptives in the past. She has never used fertility medications or hormone replacement therapy. Last Pap smear (Cotest) in 2019 Last Filed Vital Signs Vital Sign Reading Time Taken Comments Blood Pressure 132/80 02/08/2023 12:04 PM CDT Pulse 77 02/26/2020 1:37 PM CDT Temperature 36.6 C (97.9 F) 02/26/2020 1:37 PM CDT Respiratory Rate 18 02/16/2019 2:59 PM CDT Oxygen Saturation 99% 02/16/2019 2:59 PM CDT Inhaled Oxygen Concentration - - Weight 81.5 kg (179 lb 9.6 oz) 01/23/2025 2:55 P M CDT Height 165.1 cm (5' 5) 01/23/2025 2:55 PM CDT Body Mass Index 29.89 01/23/2025 2:55 PM CDT Plan of Treatment Health Maintenance Due Date Last Done Comments Cervical Cancer Screening 1966 Colon Cancer Screening-Colonoscopy 1966 Depression Screening 1966 Hepatitis C Screening 1966 Hepatitis B Screening 1984 Zoster Vaccine (1 of 2) 2016 Regular Well Visit/Exam 18-64 02/09/2024 02/08/2023 DTaP/Tdap/Td Vaccine (2 - Td or Tdap) 08/14/2024 08/14/2014, 02/25/2005 Influenza Vaccine (#1) 2025 Breast Cancer Screening-Mammogram 01/23/2026 01/23/2025, 01/11/2024, 01/04/2023, Additional history exists Pneumococcal vaccine <65 Aged Out No longer eligible based on patient's age to complete this topic Procedures Procedure Name Priority Date/Time Associated Diagnosis Comments SCREENING MAMMOGRAM BILATERAL W SAMREEN Schedule Routine, Read Routine (OP Routine) 01/23/2025 3:34 PM CDT Breast cancer screening, high risk patient from Last 3 Months or Most Recently Relevant to Health Maintenance Results * Screening Mammogram Bilateral W Samreen (01/23/2025 3:34 PM CDT) Anatomical Region Laterality Modality Breast Bilateral Mammography Narrative 01/24/2025 9:20 AM CDT Mammogram Technique: Bilateral Digital Breast Tomosynthesis, Bilateral C-view 2D Screening mammogram. Views obtained: bilateral craniocaudal and bilateral mediolateral oblique. Computer Aided Detection was performed. Mammogram Findings: The present examination has been compared to prior imaging studies performed at [facility] on 01/04/2023, 01/11/2024 and 01/19/2024. The breasts are extremely dense, which lowers the sensitivity of mammography. There are post breast conservation therapy changes in the right breast. There is no suspicious abnormality in either breast. Impression: There is no mammographic evidence of malignancy. Annual screening mammography is recommended. Consider breast MRI for supplemental screening given the patient's extremely dense breast tissue. OVERALL FINAL ASSESSMENT: BI-RADS CATEGORY 2: Benign. Procedure Note Marni Kumar MD - 01/24/2025 Mammogram Technique: Bilateral Digital Breast Tomosynthesis, Bilateral C-view 2D Screening mammogram. Views obtained: bilateral craniocaudal and bilateral mediolateral oblique. Computer Aided Detection was performed. Mammogram Findings: The present examination has been compared to prior imaging studies performed at [facility] on 01/04/2023, 01/11/2024 and 01/19/2024. The breasts are extremely dense, which lowers the sensitivity of mammography. There are post breast conservation therapy changes in the right breast. There is no suspicious abnormality in either breast. Impression: There is no mammographic evidence of malignancy. Annual screening mammography is recommended. Consider breast MRI for supplemental screening given the patient's extremely dense breasttissue. OVERALL FINAL ASSESSMENT: BI-RADS CATEGORY 2: Benign. Barbara Amin NP IMG MAMMO PROCEDURES Final Result from Last 3 Months or Most Recently Relevant to Health Maintenance Insurance [facility] [place] Care Teams Security Agent Relationship Specialty Start Date End Date Justus Bear MD [address] [place] [address] PCP - General 07/13/17 Luisa Akers DO [address] [place] [id number] Consulting Physician Obstetrics and Gynecology 02/08/23
--- OUTSIDE RECORDS SUMMARY | 2025-08-27 15:51 | XMS_ITS | Clinical Summary ---
Author Organization [employer] [facility] Address [address] [place] [address] [place] [phone] Phone Care Team Providers Care Speed Belt Sander Tender Name Role Phone Justus Bear MD Primary Care Provider + Allergies Active Allergy Reactions Criticality Noted Date Comments Penicillins Nausea and Vomiting,Dizziness Low Medications multivitamin (DAILY-NIOL) Oral tablet Take 1 Tab by mouth daily. Active pregabalin (LYRICA) 100 mg Oral CapIndications: Leg pain Take 1 Cap by mouth every 12 hours. 180 Cap 1 2 Active pantoprazole (PROTONIX) 40 mg Oral TbECIndications :Abdominal pain, generalized,Epi gastric discomfort Take 1 Tab by mouth every 12 hours. 180 Tab 3 2 Active HYDROcodone-joel taminophen (LORTAB) 5-500 mg Oral tabletIndicatio ns:Neuropathy, lateral femoral cutaneous nerve Take 1 Tab by mouth every 6 hours as needed for Pain. 45 Tab 2 3 Active buPROPion XL 24 hour (WELLBUTRIN-XL) 150 mg tablet TAKE 1 TABLET DAILY IN THE MANAGER TRANSIT 90 Tab 0 4 Active Cinnamon Bark (CINNAMON) 500 mg Capsule Take 1,000 mg by mouth 2 times daily. Active OTHER Cell Activator Alpha lipoic acid Purified aloe vera concentrate Shitake mushroom pemegranate rind extract Rhodiola root extract Lancaster bark extract Resveratrol Active OTHER Total Control Caffeine Abby root extract gree tea leaf extract Oolong tea extract Black tea extract Pomegranate rind extract Active OTHER Florafiber Dietary fiber Calcium Lactobacillus acidophilus Active OTHER Cell-U_Loss Sodium Potassium Calcium Magnesium Latimer sild extract Parsley herb extract Dandelion leaf extract Asparagus root extract Active vitamin E 1,000 unit Capsule Take 1,000 Units by mouth daily. Active ascorbic acid (VITAMIN C) 1,000 mg Tablet Take 1,000 mg by mouth 2 times daily. Active Potassium 99 mg Tablet Take 1 Tab by mouth daily. Active zinc 50 mg Tablet Take 1 Tab by mouth daily. Active Echinacea 400 mg Capsule Take 800 mg by mouth daily. Active vitamin B complex (VITAMIN B COMPLEX) Tablet Take 1 Tab by mouth daily. Active YUCCA ROOT EXTRACT (YUCCA EXTRACT ORAL) Take 2,000 mg by mouth daily. Active OTHER 2 times daily. Xtra-Tima Vitamin d Calcium Magnesium Zinc Copper manganese Active OTHER Brendan garlic plus Vitamin c Calcium Phosphorus Garlic powder Active OTHER Joint support advanced Selenium Copper Manganese Glucosamine Scute root extract Active Brindall Conde-Chromium (GARCINIA CAMBOGIA) 500-200 mg-mcg Tablet Take 1,500 mg by mouth. Active moxifloxacin (AVELOX) 400 mg tablet Take 1 Tab by mouth daily. 10 Tab 2 4 Active rosuvastatin (CRESTOR) 20 mg tablet Take 20 mg by mouth daily. 3 Active gabapentin (NEURONTIN) 300 mg capsule TAKE 2 -3 CAPSULES BY MOUTH NIGHTLY 3 Active desvenlafaxine (PRISTIQ) 100 mg Extended Release 24 hour tablet Take 100 mg by mouth daily. 3 Active cyclobenzaprine (FLEXERIL) 10 mg tablet Take 10 mg by mouth daily at bedtime. 3 Active ciprofloxacin-d exAMETHasone (Ciprodex) 0.3-0.1 % Drops, Suspension Administer 4 Drops in right ear 2 times daily. 7.5 mL 1 3 Active neomycin-polymy nila-hydrocortis one (CORTISPORIN) 3.5-10,000-1 mg/mL-unit/mL-% otic solution PLACE 3 DROPS IN RIGHT EAR TWICE DAILY FOR 1 WEEK 10 mL 4 Active Active Problems Patient Care Coordination No te Formatting of this note migh t be different from the original. Dr. Luisa Akers SECURITIES CLERK Dr. 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 Office Visit [facility] [address] [place] [address] Devante Zuniga MD Chronic mastoiditis of both sides (Primary Dx); Mixed conductive and sensorineural hearing loss of left ear with restricted hearing of right ear; Impacted cerumen of left ear 07/10/2025 External Device Data STL ABSTRACTION Provider, Abstract 06/20/2025 Telephone [facility] [address] [place] [address] Devante Zuniga MD Reschedules 06/12/2025 External Device Data STL ABSTRACTION Provider, Abstract 06/05/2025 External Device Data ST[facility] ABSTRACTION Provider, Abstract from Last 3 Months Immunizations Immunization Administration Dates Next Due (TDVAX)(7 YRS UP) TETANUS AN D DIPHTHERIA TOXOIDS, ADSORBED (2 LF OF TETANUS TOXOID AND 2 LF OF DIPHTHERIA TOXOID), 0.5ML (PF), IM 02/25/2005 Family History Medical History Relation Name Comments Lung Cancer Father Lung Cancer Mother Relation Name Status Comments Father Mother Social History Tobacco Use Types Packs/Day Years Used Date Smoking Tobacco: Every Day Cigarettes Smokeless Tobacco: Never Alcohol Use Standard Drinks/Week Comments Yes 0 (1 standard drink = 0.6 oz pur e alcohol) socially Comments No Sex and Gender Information Value Date Recorded Sex Assigned at Not on file Legal Sex Female 5:33 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 Gender Identity Not on file Sexual Orientation Not on file Last Filed Vital Signs Vital Sign Reading Time Taken Comments Blood Pressure 117/73 12/23/2022 2:35 PM CDT Pulse 68 11/23/2013 9:20 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 Temperature 36.7 C (98.1 F) 11/03/2013 2:19 PM MACHINE FARMWORKER Respiratory Rate 18 10/31/2012 10:23 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 Oxygen Saturation 97% 10/13/2010 12:29 PM MACHINE FARMWORKER Inhaled Oxygen Concentration - - Weight 84.4 kg (186 lb) 11/23/2013 9:20 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 Height 167.6 cm (5' 6) 11/23/2013 9:20 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 Body Mass Index 30.02 11/23/2013 9:20 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 Plan of Treatment Health Maintenance Due Date Last Done Comments Pre-Diabetes and Diabetes Screening 1965 HEPATITIS B VACCINES (1 of 3 - 19+ 3-dose series) 1985 FIT-DNA Q 3 years 2011 FIT/FOBT Q 1 year 2011 Flex Sig/CT Colonography Q 5 years 2011 HPV/Cotest (21-29) 01/15/2013 01/16/2008 HPV/Cotest (30-65) 01/15/2013 01/16/2008 CERVICAL CANCER SCREENING 05/28/2013 PAP SMEAR 05/28/2013 05/28/2010, 12/27, 12/27/2007, Additional history exists ZOSTER VACCINE (1 of 2) 2016 DTAP/TDAP/TD VACCINES (2 - T d or Tdap) 08/14/2024 08/14/2014, 02/25/2005 INFLUENZA VACCINE (#1) 2025 COLORECTAL SCREENING 07/18/2025 07/18/2015, 10/13/19 11 Colorectal Cancer Screening 07/18/2025 BREAST CANCER SCREENING 01/23/2026 01/24/20 25, 01/23/2025, 01/19/2024, Additional history exists Procedures Procedure Name Priority Date/Time Associated Diagnosis Comments [place] DEBRIDEMENT MASTOIDECTOMY CAVITY SIMPLE Routine 08/13/2025 4:55 PM MACHINE FARMWORKER Impacted cerumen of left ear MAMMO BILAT DIAGNOSTIC Routine 05/09/2013 CERV/VAG CYTOPATH, THIN PREP W/RFLX HPV Routine 01/16/2008 11:06 PM CDT from Last 3 Months or Most Recently Relevant to Health Maintenance Results * [place] DEBRIDEMENT MASTOIDECTOMY CAVITY SIMPLE (08/13/2025 4:55 PM MACHINE FARMWORKER) Devante Rodriguez MD - 08/13/2025 4:55 PM MACHINE FARMWORKER Devante Zuniga MD 08/13/2025 4:58 PM As indicated for accumulated debris within the mastoid cavity posing a risk for ongoing infection and limiting surveillance of the ear a separate and identifiable debridement of the aural/mastoid cavity was accomplished to facilitate examination and obviate risk. The patients left ear was brought into view under binocular microscopy and cerumen, moist debris, and squamous debris was removed from the aural cavity using curettes, picks and aligator forceps. Suction was also used to clear debris. The patient tolerated the procedure well. Devante Zuniga MD PROCEDURE/MINOR SURGICAL ORDERA BLES Final Result * MAMMO BILAT DIAGNOSTIC (05/09/2013) Anatomical Region Laterality Modality Breast Bilateral Other us Abstract Provider MAMMO ORDERABLES Edited Result - Final * CERV/VAG CYTOPATH, THIN PREP W/RFLX HPV (01/16/2008 11:06 PM CDT) SOURCE Cervix [facility] LAST MENSTRUAL PERIOD IRREGULAR [facility] REVIEW CYTOTECHNOLOGI ST: MVW, CT(ASCP) [facility] Comment: Lab test performed by: [employer] [address] [address] VILLA SELF MD REPORT STATUS FINAL [facility] CYTOTECHNOLOGI ST: ABC, CT(ASCP) [facility] CLINICAL INFORMATION 7 or more years since last Pap Normal exam [facility] ADEQUACY: Satisfactory for evaluation. Endocervical/trans formation zone component present. [facility] PREV BX: INFORMATION NOT PROVIDED [facility] PAP INTERP Negative for intraepithelial lesion or malignancy. [facility] PREV PAP: INFORMATION NOT PROVIDED [facility] Rubber Compounder Formulator Pap Comment Based on the cytology result, reflex High Risk HPV DNA testing was not performed. [facility] Specimen from uterine cervix (specimen) 01/16/2008 11:06 PM CDT 01/16/2008 11:08 PM CDT us Sreekanth Fernandez MD PATHOLOGY/CYTOLOGY ORDERABLES Fi nal Result [facility] [address] [place] [address] from Last 3 Months or Most Recently Relevant to Health Maintenance Insurance [facility] BLUE ACCESS CHOICE Advance Directives For more information, please contact: [phone] * Full Code (Latest Code Status on File) Date Activated Date Inactivated Comments 10/13/2010 11:16 AM 10/14/2010 2:32 AM Care Teams Speed Belt Sander Tender Relationship Specialty Start Date End Date Justus Bear MD [address] [place] [address] PCP - General Internal Medicine 08/13/16
== END 2025-08-27 15:15 | disposition home or self-care (01) ==
LOC: CHSIMG 15:16
PROVIDERS: PCP Internal Medicine; Visit Provider Internal Medicine
DX: M54.50 Low back pain, unspecified (principal)
CPT/HCPCS: 72100; 73502